=== PATIENT | male | born 1985 | race Caucasian/White ===

== ENCOUNTER 2020-09-28 02:16 | Emergency (ER) | payer SELFPAY ==
[~2020-09-28 02:16] MED LIST: CLIN300C12 PO; METH4TAB PO
[2020-09-28 02:57] VITALS: BP 150/95
--- NOTE | 2020-09-28 03:13 | ED Lower Extremity ---
General Stated Complaint: RT FOOT SWOLLEN Source: patient Exam Limitations: no limitations History of Present Illness Date Seen by Provider: September 28, 2020 Time Seen by Provider: 02:45 Initial Comments Patient presents ER by private conveyance with chief complaint 2 days progressively worsening right foot swelling and pain. He was not able to get sleep tonight. He has not taken anything for because he does not have anything for it except for his gabapentin. He has not seen Dr. Briceño his primary care doctor. He does see Dr. Duarte urologist for hydrocele. He is not having any chest pain shortness of air fever chills nausea vomiting diarrhea. No history of diabetes. Allergies and Home Medications Allergies Coded Allergies: Sulfa (Sulfonamide Antibiotics) (Verified Allergy, Unknown, 02/19/15) Home Medications Clindamycin HCl 300 Mg Capsule, 300 MG PO QID Prescribed by: CATHY AMAYA on 02/19/152030 Methylprednisolone 4 Mg Tab.ds.pk, 4 MG PO UD Prescribed by: CATHY AMAYA on 02/19/152030 Methylprednisolone 4 Mg Tab.ds.pk, 4 MG PO UD PER DOSE PACK INSTRUCTIONS Prescribed by: MYNOR HUTTON on 09/28/20320 Naproxen 500 Mg Tablet, 500 MG PO BID Prescribed by: MYNOR HUTTON on 09/28/20320 Patient Home Medication List Home Medication List Reviewed: Yes Review of Systems Constitutional: No chills, No diaphoresis EENTM: No hearing loss, No blurred vision Respiratory: No cough, No short of breath Cardiovascular: No chest pain, No palpitations Gastrointestinal: No abdominal pain, No nausea Genitourinary: No discharge, No dysuria Musculoskeletal: see HPI; No back pain; joint pain All Other Systems Reviewed Negative Unless Noted: Yes Past Xhzlmxu-Qjaxta-Hujult Hx Patient Social History Alcohol Use: Occasionally Uses Drug of Choice: Cannabis Smoking Status: Current Everyday Smoker Type Used: Cigarettes (2 packs/day) Past Medical History Abdominal, Orthopedic Hypertension Reproductive Disorders: No Sexually Transmitted Disease: No Family Medical History Cardiovascular disease Physical Exam Vital Signs Capillary Refill : Height, Weight, BMI Height: 6'4" Weight: 284lbs. oz. 128.515973xl; BMI Method:Stated General Appearance: WD/WN, mild distress HEENT: PERRL/EOMI, pharynx normal Cardiovascular: normal peripheral pulses, regular rate, rhythm Respiratory: no respiratory distress, no accessory muscle use Ankles: bilateral ankle non-tender, bilateral ankle normal inspection, bilateral ankle normal range of motion, bilateral ankle no evidence of injury Feet: left foot non-tender, left foot normal inspection; bilateral foot normal range of motion; left foot no evidence of injury; right foot pain, right foot soft tissue tenderness, right foot swelling (Slight) Neurologic/Tendon: normal sensation, normal motor functions, normal tendon functions, responds to pain Neurologic/Psychiatric: alert, oriented x 3 Skin: normal color, warm/dry Progress/Results/Core Measures Results/Orders My Orders Orders - MYNOR HUTTON Ketorolac Injection (Toradol Injection) (09/28/20 03:15) Foot, Right, 3 View (09/28/20 03:05) Medications Given in ED Current Medications Medications Dose Ordered Sig/Rubens Route Start Time Stop Time Status Last Admin Dose Admin Ketorolac Tromethamine 60 mg ONCE ONCE IM 09/28/20 03:15 09/28/20 03:16 DC 09/28/20 03:10 60 MG Progress Progress Note : Time: 03:12 Progress Note Nontraumatic right foot pain with some small amount of swelling. No evidence of DVT on clinical exam. No chest pain shortness of air. Little bit of erythema about his right foot. Cellulitis versus gout? Follow-up in [address] Cunningham. Return precautions discussed. Toradol for pain. Naproxen prescription. Diagnostic Imaging Diagonstic Imaging: Xray Plain Films/CT/US/NM/MRI: other (Right foot) Comments No acute osseous abnormality. Reviewed: Reviewed by Me Departure Impression Primary Impression: Acute right ankle pain Additional Impression: Gout Qualified Codes: M10.9 - Gout, unspecified Disposition: HOME, SELF-CARE Condition: Stable Departure-Patient Inst. Decision time for Depature: 03:19 Referrals: [facility] (PCP/Family) Primary Care Physician Patient Instructions: Lifestyle Changes to Manage Gout, Gout (DC) Add. Discharge Instructions: I suspect you might have gout in your right ankle. Take the steroids as directed. Naproxen 500 mg twice a day for the next 1 to 2 weeks. Expect improvement over the next week. Follow-up with Dr. Lopez if your symptoms have not resolved. Scripts Methylprednisolone (Methylprednisolone Dose Pack) 4 Mg Tab.ds.pk 4 MG PO UD for 6 Days, #21 PKG 0 Refills PER DOSE PACK INSTRUCTIONS Prov: MYNOR HUTTON 09/28/20 Naproxen (Naprosyn) 500 Mg Tablet 500 MG PO BID for 14 Days, #30 TAB 0 Refills Prov: MYNOR HUTTON 09/28/20 Work/School Note: Work Release Form Date Seen in the Emergency Department: September 28, 2020 Return to Work: September 30, 2020 Restrictions: No Restrictions MYNOR HUTTON September 28, 2020 03:13
[2020-09-28] MEDS ORDERED: KETOROLAC 60 MG/2 ML VIAL IM ONE (03:15)
[2020-09-28] MEDS ORDERED: NAPR-1071 PO ×2 (03:21→03:32)
[2020-09-28] MEDS ORDERED: METH4TAB10 PO ×2 (03:21→03:32)
--- NOTE | 2020-09-28 08:09 | Diagnostic Imaging Report ---
EXAMINATION: Right foot radiographs, 3 views. COMPARISON: None. HISTORY: 35-year-old male, right foot pain. FINDINGS: There is no identified acute fracture. There is no radiopaque foreign body. The joint spaces are well preserved. There is no identified focal soft tissue swelling. IMPRESSION: Unremarkable radiographs of the right foot. Dictated by: Dictated on workstation # [id number]
== END 2020-09-28 03:46 | disposition home or self-care (01) ==
LOC: EDUNIT# 02:16 → ER 02:20
DX: M10.9 Gout, unspecified (principal); I10 Essential (primary) hypertension; F17.210 Nicotine dependence, cigarettes, uncomplicated
CPT/HCPCS: 73630

== ENCOUNTER 2021-01-14 15:52 | Emergency (ER) | payer SELFPAY ==
[~2021-01-14] VITALS: Ht 195 cm; Wt 136.0 kg
[~2021-01-14 15:52] MED LIST changes: +METH4TAB10 PO; +NAPR-1071 PO
--- NOTE | 2021-01-14 16:11 | ED Upper Extremity ---
General Chief Complaint: Upper Extremity Stated Complaint: R HAND FINGER INJURY Source: patient Exam Limitations: no limitations History of Present Illness Date Seen by Provider: Jan 14, 2021 Time Seen by Provider: 16:10 Initial Comments To ER with right ring finger laceration at the tip from a knife just prior to arrival. Last tetanus was in 2013. He came to ER because he could not get the bleeding to stop. Onset: just prior to arrival Severity: moderate Pain/Injury Location: right 4th finger Modifying Factors: Worse With Movement Allergies and Home Medications Allergies Coded Allergies: Sulfa (Sulfonamide Antibiotics) (Verified Allergy, Unknown, 02/19/15) Patient Home Medication List Home Medication List Reviewed: Yes Clindamycin HCl (Clindamycin HCl) 300 Mg Capsule, 300 MG PO QID Prescribed by: CATHY AMAYA on 02/19/152030 Methylprednisolone (Medrol) 4 Mg Tab.ds.pk, 4 MG PO UD Prescribed by: CATHY AMAYA on 02/19/152030 Methylprednisolone (Methylprednisolone Dose Pack) 4 Mg Tab.ds.pk, 4 MG PO UD Prescribed by: MYNOR HUTTON on 09/28/20331 Naproxen (Naprosyn) 500 Mg Tablet, 500 MG PO BID Prescribed by: MYNOR HUTTON on 09/28/20331 Review of Systems Constitutional: see HPI EENTM: see HPI Respiratory: no symptoms reported Cardiovascular: no symptoms reported Genitourinary: no symptoms reported Musculoskeletal: no symptoms reported Skin: see HPI Psychiatric/Neurological: No Symptoms Reported Past Vycnjko-Xuhwxw-Xeukor Hx Patient Social History Tobacco Use?: Yes Tobacco type used: Cigarettes Smoking Status: Current Everyday Smoker Smokeless Tobacco Frequency: Light User Use of E-Cig and/or Vaping dev: No Substance use?: Yes Substance type: Marijuana Substance frequency: Daily Alcohol Use?: Yes Alcohol type: Beer Alcohol Frequency: Rarely Pt feels they are or have been: No Past Medical History Surgery/Hospitalization HX: Hernia repair and Right Knee repair twice. Surgeries: Yes (RIGHT KNEE, HERNIA REPAIR) Abdominal, Orthopedic Respiratory: No Cardiac: Yes Hypertension Neurological: No Reproductive Disorders: No Sexually Transmitted Disease: No Genitourinary: Yes (SWOLLEN TESTICLES) Gastrointestinal: No Musculoskeletal: No Endocrine: No Cancer: No Psychosocial: No Integumentary: No Blood Disorders: No Family Medical History Cardiovascular disease Physical Exam Vital Signs Vital Signs - First Documented 01/14/21 15:57 Temp 36.7 Pulse 95 Resp 18 B/P (MAP) 141/97 Pulse Ox 96 O2 Delivery Room Air Capillary Refill : Height, Weight, BMI Height: 6'4" Weight: 284lbs. oz. 128.288738uz; BMI Method:Stated General Appearance: WD/WN, no apparent distress Respiratory: no respiratory distress, no accessory muscle use Gastrointestinal: normal bowel sounds Shoulder: normal inspection, non-tender Elbow/Forearm: normal inspection, non-tender Hand: Right, laceration (superficial skin avulsion of a small area to the tip of the ring finger.) Neurologic/Psychiatric: alert, normal mood/affect, oriented x 3 Skin: normal color, warm/dry Progress/Results/Core Measures Results/Orders My Orders Orders - MARU ALANIZ APRN Dipht,Pertamanda(Acell),Tet Adult (Boostrix (01/14/21 16:15) Vital Signs/I&O 01/14/21 01/14/21 15:57 15:57 Temp 36.7 36.7 Pulse 95 95 Resp 18 B/P (MAP) 141/97 141/97 (112) Pulse Ox 96 96 O2 Delivery Room Air Room Air Departure Communication (Admissions) 1624-area was scrubbed with chlorhexidine/saline solution which caused it to rebleed. That was stopped and skin glue was applied. Impression Primary Impression: Skin avulsion Disposition: 01 HOME, SELF-CARE Condition: Stable Departure-Patient Inst. Decision time for Depature: 16:11 Referrals: [facility] (PCP/Family) Primary Care Physician Patient Instructions: Wound Care Add. Discharge Instructions: All discharge instructions reviewed with patient and/or family. Voiced under standing. MARU ALANIZ APRN Jan 14, 2021 16:11
[2021-01-14] MEDS ORDERED: TETANUS,DIPTH,PERTUSS P/F (BOOSTRIX) 0.5 ML VIAL IM ONE (16:15)
[2021-01-14 16:24] VITALS: BP 141/97
== END 2021-01-14 16:24 | disposition home or self-care (01) ==
LOC: EDUNIT# 15:52 → ER 15:55
DX: S61.204A Unspecified open wound of right ring finger without damage to nail, initial encounter (principal); I10 Essential (primary) hypertension; F17.210 Nicotine dependence, cigarettes, uncomplicated; Z23 Encounter for immunization; Z79.52 Long term (current) use of systemic steroids; W26.0XXA Contact with knife, initial encounter
CPT/HCPCS: 90715

== ENCOUNTER 2021-04-30 23:15 | Emergency (ER) | payer SELFPAY ==
[~2021-04-30] VITALS: Ht 195 cm; Wt 134.0 kg
[2021-04-30 23:15] VITALS: BP 127/93
[~2021-04-30 23:15] MED LIST changes: +CLIN-144 PO; -CLIN300C12 PO
[2021-04-30] MEDS ORDERED: LACTATED RINGERS 1,000 ML IV ONE (23:30)
--- NOTE | 2021-04-30 23:30 | ED Psychosocial ---
General Stated Complaint: OD Source: patient, EMS Exam Limitations: no limitations History of Present Illness Date Seen by Provider: Apr 30, 2021 Time Seen by Provider: 23:15 Initial Comments Patient to the ER by EMS after he called EMS because she started feeling drowsy. He says he has been working on a pint of vodka since he got a call while he was at work from his girlfriend breaking up with him. He says he is little more than group home through the pint and took 1 handful 20 to 30 capsules of gabapentin 300 mg each. He feels a little drowsy. He says he does not want to commit suicide and has no history of suicide attempts. He just wanted to sleep. He became concerned however and says he wants to lives with his who called ambulance. He has been alert and oriented x4 and cooperative for EMS. He was walking. He has had no nausea or vomiting. No fevers chills cough shortness of breath diarrhea. He has history of high blood pressure but does not routinely take any medicines despite his primary care providers concerns. Allergies and Home Medications Allergies Coded Allergies: Sulfa (Sulfonamide Antibiotics) (Verified Allergy, Unknown, 02/19/15) Patient Home Medication List Home Medication List Reviewed: Yes Clindamycin HCl (Clindamycin HCl) 300 Mg Capsule, 300 MG PO QID Prescribed by: CATHY AMAYA on 02/19/152030 Methylprednisolone (Medrol) 4 Mg Tab.ds.pk, 4 MG PO UD Prescribed by: CATHY AMAYA on 02/19/152030 Methylprednisolone (Methylprednisolone Dose Pack) 4 Mg Tab.ds.pk, 4 MG PO UD Prescribed by: MYNOR HUTTON on 09/28/20331 Naproxen (Naprosyn) 500 Mg Tablet, 500 MG PO BID Prescribed by: MYNOR HUTTON on 09/28/20331 Review of Systems Constitutional: No chills, No diaphoresis EENTM: No ear discharge, No hearing loss Respiratory: No cough, No short of breath Cardiovascular: No chest pain, No edema Gastrointestinal: No abdominal pain, No constipation, No diarrhea Genitourinary: No discharge, No dysuria Musculoskeletal: No back pain, No joint pain All Other Systems Reviewed Negative Unless Noted: Yes Past Bjlgoge-Tkxags-Svedfe Hx Patient Social History Tobacco Use?: Yes Tobacco type used: Cigarettes Smoking Status: Current Everyday Smoker Use of E-Cig and/or Vaping dev: No Substance use?: Yes Substance type: Marijuana Alcohol Use?: Yes Past Medical History Surgery/Hospitalization HX: Hernia repair and Right Knee repair twice. Surgeries: Yes (RIGHT KNEE, HERNIA REPAIR) Abdominal, Orthopedic Respiratory: No Cardiac: Yes Hypertension Neurological: No Reproductive Disorders: No Sexually Transmitted Disease: No Genitourinary: Yes (SWOLLEN TESTICLES) Gastrointestinal: No Musculoskeletal: No Endocrine: No Cancer: No Psychosocial: No Integumentary: No Blood Disorders: No Family Medical History Cardiovascular disease Physical Exam Vital Signs - First Documented 04/30/21 23:15 Temp 37.0 Pulse 91 Resp 16 B/P (MAP) 127/93 (104) Pulse Ox 96 O2 Delivery Room Air Capillary Refill : Height, Weight, BMI Height: 6'4" Weight: 284lbs. oz. 128.958756gh; 35.00 BMI Method:Stated General Appearance: WD/WN, no apparent distress HEENT: PERRL/EOMI, normal ENT inspection, pharynx normal Neck: full range of motion, supple, normal inspection Respiratory: lungs clear, normal breath sounds, no respiratory distress, no accessory muscle use Cardiovascular: normal peripheral pulses, regular rate, rhythm Peripheral Pulses: 2+ Radial Pulses (R), 2+ Radial Pulses (L) Gastrointestinal: normal bowel sounds, non tender, soft Extremities: normal range of motion, non-tender, normal capillary refill Neurologic/Psychiatric: alert, normal mood/affect, oriented x 3 Appearance/Memory: appropriate appearance Behavior/Eye Contact: cooperative, good eye contact, normal speech Thoughts/Hallucinations: normal thought pattern, no apparent hallucination, other (Denies suicidal ideation or homicidal ideation.) Progress/Results/Core Measures Results/Orders Lab Results Laboratory Tests Test 04/30/21 23:33 Range/Units White Blood Count 11.4 H 4.3-11.0 10^3/uL Red Blood Count 5.22 4.30-5.52 10^6/uL Hemoglobin 16.5 13.3-17.7 g/dL Hematocrit 48 40-54 % Mean Corpuscular Volume 92 80-99 fL Mean Corpuscular Hemoglobin 32 25-34 pg Mean Corpuscular Hemoglobin Concent 34 32-36 g/dL Red Cell Distribution Width 11.7 10.0-14.5 % Platelet Count 220 130-400 10^3/uL Mean Platelet Volume 10.8 9.0-12.2 fL Immature Granulocyte % (Auto) 0 % Neutrophils (%) (Auto) 73 42-75 % Lymphocytes (%) (Auto) 17 12-44 % Monocytes (%) (Auto) 9 0-12 % Eosinophils (%) (Auto) 0 0-10 % Basophils (%) (Auto) 0 0-10 % Neutrophils # (Auto) 8.4 H 1.8-7.8 10^3/uL Lymphocytes # (Auto) 2.0 1.0-4.0 10^3/uL Monocytes # (Auto) 1.1 H 0.0-1.0 10^3/uL Eosinophils # (Auto) 0.0 0.0-0.3 10^3/uL Basophils # (Auto) 0.0 0.0-0.1 10^3/uL Immature Granulocyte # (Auto) 0.0 0.0-0.1 10^3/uL Sodium Level 143 135-145 MMOL/L Potassium Level 3.3 L 3.6-5.0 MMOL/L Chloride Level 109 H 98-107 MMOL/L Carbon Dioxide Level 20 L 21-32 MMOL/L Anion Gap 14 5-14 MMOL/L Blood Urea Nitrogen 12 7-18 MG/DL Creatinine 0.89 0.60-1.30 MG/DL Estimat Glomerular Filtration Rate 97 BUN/Creatinine Ratio 13 Glucose Level 104 70-105 MG/DL Calcium Level 8.8 8.5-10.1 MG/DL Corrected Calcium 8.8 8.5-10.1 MG/DL Total Bilirubin 0.6 0.1-1.0 MG/DL Aspartate Amino Transf (AST/SGOT) 29 5-34 U/L Alanine Aminotransferase (ALT/SGPT) 46 0-55 U/L Alkaline Phosphatase 54 40-136 U/L Total Protein 6.7 6.4-8.2 GM/DL Albumin 4.0 3.2-4.5 GM/DL Salicylates Level < 5.0 L 5.0-20.0 MG/DL Acetaminophen Level < 10 L 10-30 UG/ML Serum Alcohol 133 H <10 MG/DL My Orders Orders - MYNOR HUTTON Ed Iv/Invasive Line Start (04/30/21 23:22) Lactated Ringers (Lr 1000 Ml Iv Solution (04/30/21 23:30) Ua Culture If Indicated (04/30/21:) Cbc With Automated Diff (04/30/21) Comprehensive Metabolic Panel (04/30/21) Alcohol (04/30/21:) Drug Screen Stat (Urine) (04/30/21:) Acetaminophen (04/30/21:) Salicylate (04/30/21) Ekg Tracing (04/30/21) Ed Iv/Invasive Line Start (04/30/21) Monitor-Rhythm Ecg Trace Only (04/30/21) Bh Status Checks/Observation Q15M (04/30/21) Ed Iv/Invasive Line Start (04/30/21) End Tidal Co2 (04/30/21:) Vital Signs/I&O 04/30/21 23:15 Temp 37.0 Pulse 91 Resp 16 B/P (MAP) 127/93 (104) Pulse Ox 96 O2 Delivery Room Air 05/01/21 00:00 Intake Total 100 ml Balance 100 ml Progress Progress Note #1: Time: 23:38 Progress Note As the patient is was getting some blood drawn he decided he did not want to stay any longer. He says he had to go home and get to his dog and he had to make it to work in the morning. We explained to him that after speaking to poison control he only needed a 6-hour observation at which time he could take a nap here and then go home and check on his dog and go to work in the morning. Patient said this was not acceptable and wants to go AMA. We explained to him risks, benefits and alternatives. We explained him that we would have to contact law enforcement to let him know that he was impaired. At no time was the patient made any suicidal comments. We had a lengthy conversation and he still elected to go AMA. His IVs were discontinued and he was allowed to leave. Nursing staff to notify law enforcement Progress Note #2: Time: 00:35 Progress Note Please search to the campus as well as the streets looking for him and around the successful in locating him. He called back Stating he was at home and asked if he was going to . We explained to him that it is unlikely he took enough gabapentin or alcohol to significantly harm himself however he is welcome to come back to the ER to be monitored. He states he was not going to come back to the ER. He states he was going to snort some Seven dust and had a pistol sitting on the couch beside him. He states that he was very sad about his recent girlfriend leaving him and might shoot himself. He says he would definitely shoot anyone who tried to come through the door. He then hung up and police were called again and they responded to his home. Departure Impression Primary Impression: Acute alcoholic intoxication Qualified Codes: F10.920 - Alcohol use, unspecified with intoxication, uncomplicated Additional Impression: Gabapentin overdose Qualified Codes: T42.6X4A - Poisoning by other antiepileptic and sedative- hypnotic drugs, undetermined, initial encounter Disposition: 01 HOME, SELF-CARE Condition: Stable Departure-Patient Inst. Decision time for Depature: 23:39 Referrals: [facility] (PCP/Family) Primary Care Physician Patient Instructions: Alcohol Use Disorder (DC) Add. Discharge Instructions: Please follow-up with your primary care doctor or [facility] by calling [phone] if you are needing extra help. Return to the ER for worsening symptoms. MYNOR HUTTON Apr 30, 2021 23:29
[2021-04-30 23:38] LABS: BASOPHILS % (AUTO) 0 % (0-10); EOSINOPHILS % (AUTO) 0 % (0-10); HEMATOCRIT 48 % (40-54); HEMOGLOBIN 16.5 g/dL (13.3-17.7); LYMPHOCYTES % (AUTO) 17 % (12-44); MEAN CORPUSCULAR HEMOGLOBIN 32 pg (25-34); MEAN CORPUSCULAR HGB CONC 34 g/dL (32-36); MEAN CORPUSCULAR VOLUME 92 fL (80-99); MEAN PLATELET VOLUME 10.8 fL (9.0-12.2); MONOCYTES # (AUTO) 1.1 10^3/uL (0.0-1.0); MONOCYTES % (AUTO) 9 % (0-12); NEUTROPHILS # (AUTO) 8.4 10^3/uL (1.8-7.8); NEUTROPHILS % (AUTO) 73 % (42-75); PLATELET COUNT 220 10^3/uL (130-400); WHITE BLOOD COUNT 11.4 10^3/uL (4.3-11.0)
[2021-04-30 23:48] LABS: CHLORIDE 109 MMOL/L (98-107); POTASSIUM 3.3 MMOL/L (3.6-5.0)
[2021-04-30 23:49] LABS: SODIUM 143 MMOL/L (135-145)
[2021-04-30 23:50] LABS: CALCIUM 8.8 MG/DL (8.5-10.1)
[2021-04-30 23:51] LABS: GLUCOSE 104 MG/DL (70-105)
[2021-04-30 23:52] LABS: CARBON DIOXIDE 20 MMOL/L (21-32); TOTAL PROTEIN 6.7 GM/DL (6.4-8.2)
[2021-04-30 23:53] LABS: BILIRUBIN,TOTAL 0.6 MG/DL (0.1-1.0)
[2021-04-30 23:55] LABS: ALKALINE PHOSPHATASE 54 U/L (40-136); CREATININE SERUM 0.89 MG/DL (0.60-1.30); GFR ESTIMATED 97
[2021-04-30 23:56] LABS: BUN/CREATININE RATIO 13
[2021-04-30 23:58] LABS: ALANINE AMINOTRANSFERASE 46 U/L (0-55); SALICYLATE < 5.0 MG/DL (5.0-20.0)
[2021-05-01 00:03] LABS: ACETAMINOPHEN < 10 UG/ML (10-30)
== END 2021-04-30 23:35 | disposition left against medical advice (07) ==
LOC: EDUNIT# 23:19 → ER 23:21
DX: F10.129 Alcohol abuse with intoxication, unspecified (principal); T42.6X4A Poisoning by other antiepileptic and sedative-hypnotic drugs, undetermined, initial encounter; I10 Essential (primary) hypertension; F17.210 Nicotine dependence, cigarettes, uncomplicated
CPT/HCPCS: 80053; 85025; 93041; 99283; G0480 ×3; 36415; 80320; 80329

== ENCOUNTER 2021-05-11 23:29 | Emergency (ER) | payer SELFPAY ==
[~2021-05-11] VITALS: Ht 195.6 cm; Wt 125.0 kg
[2021-05-11] MEDS ORDERED: LISI5TAB20 PO (23:41)
--- NOTE | 2021-05-11 23:58 | ED Psychosocial ---
General Chief Complaint: Psych/Social Disorder Stated Complaint: CP;ABD PAIN Nursing Triage Note: brought in by [facility] for c/o anxiety for several months progressively getting worse since 05/05/21 Source: patient History of Present Illness Date Seen by Provider: May 11, 2021 Time Seen by Provider: 23:45 Initial Comments PT ARRIVES VIA EMS FROM HOME C/O ANXIETY ONGOING FOR SEVERAL MONTHS, BUT MUCH WORSE SINCE HIS GIRLFRIEND LEFT HIM ON 05/01/[address] DUARTE, HIS PCP, THIS PAST WEEK, WELL [facility] THIS PAST WEEK FOR THIS PROBLEM STATES HE ALSO HAS AN APPOINTMENT IN THE MORNING WITH [facility] AND [facility] FOR HIS ALCOHOL ABUSE, WELL MARIJUANA USE STATES HE HAS NOT HAD ANY ALCOHOL RECENTLY--STATES HE NORMALLY DRINKS VERY HEAVY EVERY DAY--AT LEAST A PINT OF HARD LIQUOR DAILY PT SMOKES MARIJUANA ON REGULAR BASIS, BUT STATES "NO HARD DRUGS FOR YEARS"--USED TO SMOKE AND SNORT METH. DENIES IV USE HAS HISTORY OF PSYCH PROBLEMS, BUT HAS NOT BEEN ON MEDICATIONS FOR AT LEAST 10 YEARS STATES [place]EN [place] [employer] [place], BUT OVER 10 YEARS AGO DENIES ANY SUICIDAL OR HOMICIAL THOUGHTS OR ATTEMPTS TO ME HOWEVER, PT WAS SEEN HERE 04/30/21 FOR ALCOHOL INTOXICATION AND INTENTIONALLY OVERDOSING ON GABAPENTIN-HE DENIED SUICIDAL IDEATIONS, ONLY STATING THAT HE "WANTED TO GO TO SLEEP". HE HAD REPORTED AT THAT TIME, THAT HIS GIRLFRIEND LEFT HIM THE DAY PRIOR HE LEFT A, THEN WAS LATER CONTACTED AND HE MADE SUICIDAL AND HOMICIAL THREATS ON THE PHONE, AND POLICE WERE CONTACTED AND THEY RESPONDED TO THE HOME,BUT PT WAS NOT BROUGHT BACK TO ER. 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 DUARTE [facility] Allergies and Home Medications Allergies Coded Allergies: Sulfa (Sulfonamide Antibiotics) (Verified Allergy, Unknown, 02/19/15) Patient Home Medication List Home Medication List Reviewed: Yes Lisinopril (Lisinopril) 5 Mg Tablet, Unknown Dose PO DAILY, (Reported) Entered as Reported by: ROE ESPINOSA on 05/11/21 9806 Last Action: New Order Discontinued Medications Clindamycin HCl (Clindamycin HCl) 300 Mg Capsule, 300 MG PO QID Discontinued Reason: No Longer Taking Prescribed by: CATHY AMAYA on 02/19/152030 Last Action: Discontinued Methylprednisolone (Medrol) 4 Mg Tab.ds.pk, 4 MG PO UD Discontinued Reason: No Longer Taking Prescribed by: CATHY AMAYA on 02/19/152030 Last Action: Discontinued Methylprednisolone (Methylprednisolone Dose Pack) 4 Mg Tab.ds.pk, 4 MG PO UD Discontinued Reason: No Longer Taking Prescribed by: MYNOR HUTTON on 09/28/20331 Last Action: Discontinued Naproxen (Naprosyn) 500 Mg Tablet, 500 MG PO BID Discontinued Reason: No Longer Taking Prescribed by: MYNOR HUTTON on 09/28/20331 Last Action: Discontinued Review of Systems Constitutional: no symptoms reported Respiratory: no symptoms reported Cardiovascular: other (HAS HAD CHEST TIGHTNESS WHEN HE GETS VERY ANXIOUS, BUT NO SYMPTOMS NOW. ) Gastrointestinal: no symptoms reported Genitourinary: no symptoms reported Musculoskeletal: no symptoms reported Skin: no symptoms reported Psychiatric/Neurological: See HPI, Anxiety Past Txdabdg-Vmlmpe-Qffsvi Hx Patient Social History Tobacco Use?: Yes Tobacco type used: Cigarettes Smoking Status: Current Everyday Smoker Substance use?: Yes Substance type: Methamphetamine, Marijuana Additional substance use comme: HX OF METH USE Substance frequency: Daily Alcohol Use?: Yes Alcohol type: Hard Liquor Alcohol Frequency: Daily Pt feels they are or have been: No Past Medical History Surgery/Hospitalization HX: Hernia repair and Right Knee repair twice, htn, bipolar, schizophrenia, depression/anxiety. Surgeries: Yes (RIGHT KNEE, HERNIA REPAIR) Abdominal, Orthopedic Respiratory: No Cardiac: Yes Hypertension Neurological: No Reproductive Disorders: No Sexually Transmitted Disease: No Genitourinary: Yes (SWOLLEN TESTICLES) Gastrointestinal: No Musculoskeletal: No Endocrine: No HEENT: No Cancer: No Psychosocial: Yes (OSAWATOMIE X 2; OVERDOSES) Sleep Difficulties, Anxiety, Suicide Attempts, Personality Disorder, Schizophrenia, Depression Integumentary: No Blood Disorders: No Family Medical History Cardiovascular disease Physical Exam Vital Signs - First Documented 05/11/21 23:33 Temp 36.8 Pulse 95 Resp 18 B/P (MAP) 131/97 (108) Pulse Ox 97 O2 Delivery Room Air Capillary Refill : Less Than 3 Seconds Height, Weight, BMI Height: 6'4" Weight: 284lbs. oz. 128.734038pi; 32.00 BMI Method:Stated General Appearance: WD/WN, no apparent distress, other (COVERED IN ANIMAL HAIR) Respiratory: chest non-tender, normal breath sounds, no respiratory distress, no accessory muscle use Cardiovascular: regular rate, rhythm, no murmur Gastrointestinal: soft Neurologic/Psychiatric: no motor/sensory deficits, alert, oriented x 3, other (PT IS CALM AT THIS TIME) Appearance/Memory: appropriate insight, no memory impairment Behavior/Eye Contact: cooperative, good eye contact, normal speech Thoughts/Hallucinations: normal thought pattern, no apparent hallucination Skin: normal color, warm/dry, tattoos/piercings Progress/Results/Core Measures Results/Orders My Orders Orders - CATHY AMAYA DO Rx-Hydroxyzine Pamoate (Rx-Vistaril) (05/11/21 23:56) Vital Signs/I&O 05/11/21 05/12/21 23:33 00:03 Temp 36.8 Pulse 95 81 Resp 18 18 B/P (MAP) 131/97 (108) 131/82 Pulse Ox 97 95 O2 Delivery Room Air Room Air Blood Pressure Mean: 108 Progress Progress Note : Progress Note PT ADVISED TO KEEP APPOINTMENT TOMORROW WITH SUBSTANCE ABUSE TREATMENT CLINIC AND FOLLOW UP WITH DR. DUARTE AND MENTAL HEALTH THIS WEEK WELL Departure Impression Primary Impression: Anxiety Disposition: 01 HOME, SELF-CARE Condition: Stable Departure-Patient Inst. Decision time for Depature: 23:57 Referrals: [facility] (PCP/Family) Primary Care Physician Patient Instructions: Anxiety, Adult (DC) Add. Discharge Instructions: HOME, REST KEEP YOUR APPOINTMENT WITH MENTAL HEALTH/SUBSTANCE ABUSE TREATMENT PROGRAM TOMORROW SCHEDULED FOLLOW UP WITH DR. DUARTE THIS WEEK FOR FURTHER CARE WELL All discharge instructions reviewed with patient and/or family. Voiced understanding. CATHY AMAYA DO May 11, 2021 23:58
[2021-05-12 00:03] VITALS: BP 131/82
== END 2021-05-12 00:06 | disposition home or self-care (01) ==
LOC: EDUNIT# 23:29 → ER 23:30
DX: F41.9 Anxiety disorder, unspecified (principal); I10 Essential (primary) hypertension; F17.210 Nicotine dependence, cigarettes, uncomplicated; Z79.899 Other long term (current) drug therapy
CPT/HCPCS: 99285

== ENCOUNTER 2021-08-29 19:43 | Emergency (ER) | payer SELFPAY ==
[~2021-08-29] VITALS: Ht 193 cm; Wt 128.3 kg
[~2021-08-29 19:43] MED LIST changes: +LISI5TAB20 PO
[2021-08-29 19:48] VITALS: BP 152/90
[2021-08-29] MEDS ORDERED: ORPHENADRINE 60 MG/2 ML (NORFLEX) AMP (ED ONLY) IM ONE (20:00)
[2021-08-29] MEDS ORDERED: HYDROcodone/APAP 5 MG/325 MG (LORTAB) TAB PO ONE (20:00)
[2021-08-29] MEDS ORDERED: predniSONE 20 MG TAB PO ONE (20:00)
[2021-08-29] MEDS ORDERED: KETOROLAC 60 MG/2 ML VIAL IM ONE (20:00)
--- NOTE | 2021-08-29 20:06 | ED Back Pain ---
General Chief Complaint: Back Problems Stated Complaint: BACK PAIN Nursing Triage Note: PT TO ROOM BY WHEELCHAIR. PT STATES HE BEGAN HAVING BACK PAIN TWO DAYS AGO. HE THINKS HE PROBABLY LIFTED SOMETHING HEAVY, BUT STATES HE DOES NOT RECALL AN INJURY Source of Information: Patient Exam Limitations: No Limitations (MARU ALANIZ APRN) History of Present Illness Date Seen by Provider: Aug 29, 2021 Time Seen by Provider: 20:03 Initial Comments to ER by private vehicle from home with reports of low midline back pain that radiates around both hips laterally. He has had some urinary frequency since last night no fever no chills no nausea no vomiting. He states that he does have long-term back pain but this seems worse. He does have an anti- inflammatory and a muscle relaxer that he takes at bedtime. He has not yet had that this evening. He just got off work at [email or web address]. He states he does heavy lifting at work and does some lifting at home. He does not recall any particular injury. He denies fevers or chills. Denies any personal history of cancer. Denies any numbness of his genitals. Denies any IV drug use. Location: Lumbar Spine, Paraspinous Muscles Timing/Duration: Gone Now Severity: Moderate Pain/Injury Location: Back Associated Symptoms: lower back pain (MARU ALANIZ APRN) Allergies and Home Medications Allergies Coded Allergies: Sulfa (Sulfonamide Antibiotics) (Verified Allergy, Unknown, 02/19/15) Patient Home Medication List Home Medication List Reviewed: Yes (MARU ALANIZ APRN) Cefuroxime Axetil (Cefuroxime) 500 Mg Tablet, 500 MG PO BID Prescribed by: MARU ALANIZ on 08/29/212028 Hydrocodone/Acetaminophen (Hydrocodone-Acetamin 5-325 mg) 5 Mg-325 Mg Tablet, 1 TAB PO Q4H PRN for PAIN-MODERATE (5-7) Prescribed by: MARU ALANIZ on 08/29/212032 Lisinopril (Lisinopril) 5 Mg Tablet, Unknown Dose PO DAILY, (Reported) Entered as Reported by: ROE ESPINOSA on 05/11/21 2341 Review of Systems Constitutional: see HPI EENTM: see HPI Respiratory: no symptoms reported Cardiovascular: no symptoms reported Genitourinary: no symptoms reported Musculoskeletal: see HPI, back pain Skin: no symptoms reported Psychiatric/Neurological: No Symptoms Reported (MARU ALANIZ APRN) Past Xjztwst-Idwnwu-Ydkfsh Hx Past Medical History Surgery/Hospitalization HX: Hernia repair and Right Knee repair twice, htn, bipolar, schizophrenia, depression/anxiety. Surgeries: Yes (RIGHT KNEE, HERNIA REPAIR) Abdominal, Orthopedic Respiratory: No Cardiac: Yes Hypertension Neurological: No Reproductive Disorders: No Sexually Transmitted Disease: No Genitourinary: Yes (SWOLLEN TESTICLES) Gastrointestinal: No Musculoskeletal: No Endocrine: No HEENT: No Cancer: No Psychosocial: Yes (OSAWATOMIE X 2; OVERDOSES) Sleep Difficulties, Anxiety, Suicide Attempts, Personality Disorder, Schizophrenia, Depression Integumentary: No Blood Disorders: No (MARU ALANIZ APRN) Family Medical History Cardiovascular disease Physical Exam Vital Signs Vital Signs - First Documented 08/29/21 08/29/21 19:48 21:14 Temp 36.8 Pulse 75 Resp 20 B/P (MAP) 152/90 (110) Pulse Ox 96 O2 Delivery Room Air (CATHY AMAAY DO) Vital Signs Capillary Refill : (MARU ALANIZ APRN) Height, Weight, BMI Height: 6'4" Weight: 284lbs. oz. 128.766396nt; 34.00 BMI Method:Stated General Appearance: No Apparent Distress, WD/WN Respiratory: No Accessory Muscle Use, No Respiratory Distress Extremity: Normal Capillary Refill, Normal Inspection, Other (Normal dorsiflexion of the feet and plantar flexion with strength 5 out of 5. On arrival he required assistance to get out of the car in a wheelchair. He then required assistance getting into bed. Shortly thereafter he was able to stand up provide urine sample. He is able to stand up with assistance, then stood on his own, then sat down on his own and lifted his own legs into bed.) Neurologic/Psychiatric: Alert, Oriented x3 Skin: Normal Color, Warm/Dry (MARU ALANIZ APRN) Progress/Results/Core Measures Results/Orders Lab Results Laboratory Tests Test 08/29/21 20:00 08/29/21 20:42 Range/Units Urine Color YELLOW Urine Clarity CLEAR Urine pH 5.5 5-9 Urine Specific [place] >=1.030 1.016-1.022 Urine Protein NEGATIVE NEGATIVE Urine Glucose (UA) NEGATIVE NEGATIVE Urine Ketones NEGATIVE NEGATIVE Urine Nitrite NEGATIVE NEGATIVE Urine Bilirubin NEGATIVE NEGATIVE Urine Urobilinogen 0.2 < = 1.0 MG/DL Urine Leukocyte Esterase NEGATIVE NEGATIVE Urine RBC (Auto) NEGATIVE NEGATIVE Urine RBC RARE /HPF Urine WBC 0-2 /HPF Urine Squamous Epithelial Cells NONE /HPF Urine Crystals NONE /LPF Urine Bacteria MODERATE H /HPF Urine Casts NONE /LPF Urine Mucus NEGATIVE /LPF Urine Culture Indicated YES White Blood Count 6.9 4.3-11.0 10^3/uL Red Blood Count 5.15 4.30-5.52 10^6/uL Hemoglobin 16.4 13.3-17.7 g/dL Hematocrit 48 40-54 % Mean Corpuscular Volume 92 80-99 fL Mean Corpuscular Hemoglobin 32 25-34 pg Mean Corpuscular Hemoglobin Concent 35 32-36 g/dL Red Cell Distribution Width 11.9 10.0-14.5 % Platelet Count 247 130-400 10^3/uL Mean Platelet Volume 10.5 9.0-12.2 fL Immature Granulocyte % (Auto) 0 % Neutrophils (%) (Auto) 55 42-75 % Lymphocytes (%) (Auto) 32 12-44 % Monocytes (%) (Auto) 11 0-12 % Eosinophils (%) (Auto) 2 0-10 % Basophils (%) (Auto) 1 0-10 % Neutrophils # (Auto) 3.8 1.8-7.8 10^3/uL Lymphocytes # (Auto) 2.2 1.0-4.0 10^3/uL Monocytes # (Auto) 0.8 0.0-1.0 10^3/uL Eosinophils # (Auto) 0.1 0.0-0.3 10^3/uL Basophils # (Auto) 0.0 0.0-0.1 10^3/uL Immature Granulocyte # (Auto) 0.0 0.0-0.1 10^3/uL Sodium Level 139 135-145 MMOL/L Potassium Level 4.1 3.6-5.0 MMOL/L Chloride Level 107 98-107 MMOL/L Carbon Dioxide Level 20 L 21-32 MMOL/L Anion Gap 12 5-14 MMOL/L Blood Urea Nitrogen 13 7-18 MG/DL Creatinine 0.90 0.60-1.30 MG/DL Estimat Glomerular Filtration Rate 114 BUN/Creatinine Ratio 14 Glucose Level 92 70-105 MG/DL Calcium Level 8.8 8.5-10.1 MG/DL Corrected Calcium 9.0 8.5-10.1 MG/DL Total Bilirubin 1.1 H 0.1-1.0 MG/DL Aspartate Amino Transf (AST/SGOT) 23 5-34 U/L Alanine Aminotransferase (ALT/SGPT) 39 0-55 U/L Alkaline Phosphatase 52 40-136 U/L C-Reactive Protein High Sensitivity 0.02 0.00-0.50 MG/DL Total Protein 6.1 L 6.4-8.2 GM/DL Albumin 3.8 3.2-4.5 GM/DL (JOSE LUISCATHY Tenorio ) Medications Given in ED Current Medications Medications Dose Ordered Sig/Rubens Route Start Time Stop Time Status Last Admin Dose Admin Acetaminophen/ Hydrocodone Bitart 1 ea ONCE ONCE PO 08/29/21 20:00 08/29/21 20:01 DC 08/29/21 20:06 1 EA Ketorolac Tromethamine 60 mg ONCE ONCE IM 08/29/21 20:00 08/29/21 20:01 DC 08/29/21 20:07 60 MG Orphenadrine Citrate 60 mg ONCE ONCE IM 08/29/21 20:00 08/29/21 20:01 DC 08/29/21 20:06 60 MG Prednisone 40 mg ONCE ONCE PO 08/29/21 20:00 08/29/21 20:01 DC 08/29/21 20:06 40 MG (JOSE LUIS,CATHY Tenorio ) Vital Signs/I&O 08/29/21 08/29/21 19:48 21:14 Temp 36.8 Pulse 75 76 Resp 20 20 B/P (MAP) 152/90 (110) Pulse Ox 96 97 O2 Delivery Room Air (CATHY AMAYA ) Blood Pressure Mean: 110 Departure Communication (Admissions) 2025-is urine shows no nitrites no leukocyte esterase and no white cells though he does have a large number of bacteria in his urine and his symptoms of bilateral anterior hip pain and urinary frequency since last night are consistent with UTI. I will treat empirically for UTI until culture results are back. 2040-patient states he now has a spasm in his back that seems worse than before. I offered to start an IV and check some labs and give him something stronger for pain. He replies "I feel like you guys are always having to start an IV on somebody". I informed him this is the ER and if someone is sick and have to be here they probably need an IV. He asked what I would give him through the IV and I told him I would use something like fentanyl. He replies "oh no, fentanyl is bad". He then wishes to proceed with IV placement and something different for pain because its not controlled right now. Discussed with him my plan to put him on an antibiotic for the bacteria in his urine. He informs me that the bacteria in his urine is coming from his testicle because he has an infection at the doctor wants to do surgery for but he will not let them. He does not have a ny testicular pain or genital pain. (MARU ALANIZ APRN) Impression Primary Impression: Acute low back pain Disposition: 01 HOME, SELF-CARE Condition: Stable Departure-Patient Inst. Decision time for Depature: 20:06 (MARU ALANIZ APRN) Referrals: [facility] (PCP/Family) Primary Care Physician Patient Instructions: Low Back Pain ED Add. Discharge Instructions: 1. Take antibiotics until the urine culture is back. Continue the current pain medication regimen at home. Follow-up with your doctor next week. If pain persists then the next step would be having your family doctor order an MRI. All discharge instructions reviewed with patient and/or family. Voiced understanding. Scripts Hydrocodone/Acetaminophen (Hydrocodone-Acetamin 5-325 mg) 5 Mg-325 Mg Tablet 1 TAB PO Q4H PRN for PAIN-MODERATE (5-7), #5 TAB Prov: MARU ALANIZ APRN 08/29/21 Cefuroxime Axetil (Cefuroxime) 500 Mg Tablet 500 MG PO BID, #14 TAB Prov: MARU ALANIZ APRN 08/29/21 Work/School Note: Work Release Form Date Seen in the Emergency Department: Aug 29, 2021 Return to Work: Aug 31, 2021 ATTENDING PHYSICIAN NOTE: I WAS PHYSICALLY PRESENT ER PHYSICIAN, BUT I WAS NOT INVOLVED IN ANY DECISION MAKING OR ANY CARE OF THIS PATIENT. (CATHY AMAYA DO) MARU ALANIZ APRN Aug 29, 2021 20:06 CATHY AMAYA DO Aug 29, 2021 21:32
[2021-08-29 20:08] LABS: BILIRUBIN,URINE NEGATIVE (NEGATIVE); CLARITY,URINE CLEAR; COLOR,URINE YELLOW; GLUCOSE, URINE (UA) NEGATIVE (NEGATIVE); KETONES,URINE NEGATIVE (NEGATIVE); LEUKOCYTE ESTERASE ,URINE NEGATIVE (NEGATIVE); NITRITE,URINE NEGATIVE (NEGATIVE); PH,URINE 5.5 (5-9); PROTEIN,URINE NEGATIVE (NEGATIVE)
[2021-08-29 20:23] LABS: BACTERIA,URINE MODERATE /HPF; RBC,URINE RARE /HPF; WBC,URINE 0-2 /HPF
[2021-08-29] MEDS ORDERED: CEFU500T63 PO (20:29)
[2021-08-29] MEDS ORDERED: ACHD5005 PO (20:30)
[2021-08-29] MEDS ORDERED: morphine INJ 10 MG/ML 1ML (SYR OR VIAL) IVP STA (20:37)
[2021-08-29 21:02] LABS: ALBUMIN 3.8 GM/DL (3.2-4.5); POTASSIUM 4.1 MMOL/L (3.6-5.0)
[2021-08-29 21:03] LABS: BASOPHILS % (AUTO) 1 % (0-10); EOSINOPHILS # (AUTO) 0.1 10^3/uL (0.0-0.3); EOSINOPHILS % (AUTO) 2 % (0-10); HEMATOCRIT 48 % (40-54); HEMOGLOBIN 16.4 g/dL (13.3-17.7); LYMPHOCYTES # (AUTO) 2.2 10^3/uL (1.0-4.0); LYMPHOCYTES % (AUTO) 32 % (12-44); MEAN CORPUSCULAR HEMOGLOBIN 32 pg (25-34); MEAN CORPUSCULAR HGB CONC 35 g/dL (32-36); MEAN CORPUSCULAR VOLUME 92 fL (80-99); MEAN PLATELET VOLUME 10.5 fL (9.0-12.2); MONOCYTES # (AUTO) 0.8 10^3/uL (0.0-1.0); MONOCYTES % (AUTO) 11 % (0-12); NEUTROPHILS # (AUTO) 3.8 10^3/uL (1.8-7.8); NEUTROPHILS % (AUTO) 55 % (42-75); PLATELET COUNT 247 10^3/uL (130-400); WHITE BLOOD COUNT 6.9 10^3/uL (4.3-11.0)
[2021-08-29 21:04] LABS: CALCIUM 8.8 MG/DL (8.5-10.1)
[2021-08-29 21:05] LABS: TOTAL PROTEIN 6.1 GM/DL (6.4-8.2)
[2021-08-29 21:07] LABS: BILIRUBIN,TOTAL 1.1 MG/DL (0.1-1.0)
[2021-08-29 21:09] LABS: CREATININE SERUM 0.9 MG/DL (0.60-1.30)
[2021-08-29 21:52] LABS: ERYTHROCYTE SEDIMENTATION RATE 3 MM/HR (0-15)
== END 2021-08-29 21:17 | disposition home or self-care (01) ==
LOC: EDUNIT# 19:43 → ER 19:46
DX: M54.50 Low back pain, unspecified (principal); X50.0XXA Overexertion from strenuous movement or load, initial encounter
CPT/HCPCS: 36415; 80053; 81000; 85025; 85652; 86141; 87088; 87491; 87591

== ENCOUNTER 2021-09-11 15:26 | Emergency (ER) | payer SELFPAY ==
[~2021-09-11] VITALS: Ht 193 cm; Wt 122.0 kg
[~2021-09-11 15:26] MED LIST changes: -CYCL10TA25 PO; -GABA300C PO; -TRAM-42 PO
[2021-09-11] MEDS ORDERED: KETOROLAC 30 MG/ML VIAL IVP ONE (15:45)
[2021-09-11] MEDS ORDERED: ORPHENADRINE 60 MG/2 ML (NORFLEX) AMP (ED ONLY) IM ONE (15:45)
--- NOTE | 2021-09-11 15:48 | ED Back Pain ---
General Chief Complaint: Back Problems Stated Complaint: BACK PAIN Nursing Triage Note: PT STATES HX OF BACK PAIN, JUST CAME FROM MRI, NEEDS TO BE AT WORK AT 1700 AND WOULD LIKE SOMETHING TO HELP HIM FEEL BETTER. FREQUENT DARK URINATION, STATES BLADDER PAIN, BLACK STOOLS Source of Information: Patient Exam Limitations: No Limitations History of Present Illness Date Seen by Provider: September 11, 2021 Time Seen by Provider: 15:47 Initial Comments Patient is a 35-year-old male who presents to the ED for back pain. Patient states he has been having this intermittent back pain over the past 2 weeks. He was seen here on the and states he had lab work and urinalysis which was unremarkable. Patient had a outpatient MRI performed today and came to the ED. He states he has been having this sharp shooting pain to his hip bilateral and lower abdomen. Pain described as sharp intermittent worse with movement. Sharp shooting pain down the right leg. Denies of any bowel or urine incontinence or saddle paresthesia. Does report some possible dark urine and dark tarry stools. This occurred a few days ago lasting for a few days but no symptoms today. Patient states he was given pain medication here with some improvement of pain. Denies of any IV drug use, night sweats, fever. Pain does radiate up into the shoulder blades bilateral. Denies chest pain, shortness of breath, cough, headache, dizziness. Patient refusing any lab work, continue imaging such as CT abdomen pelvis and urinalysis. Patient also requesting work note. Patient denies of any specific injury. 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 Allergies and Home Medications Allergies Coded Allergies: Sulfa (Sulfonamide Antibiotics) (Verified Allergy, Unknown, 02/19/15) Patient Home Medication List Home Medication List Reviewed: Yes Cefuroxime Axetil (Cefuroxime) 500 Mg Tablet, 500 MG PO BID Prescribed by: MARU ALANIZ on 08/29/212028 Cyclobenzaprine HCl (Cyclobenzaprine HCl) 10 Mg Tablet, 10 MG PO TID Prescribed by: ABRAHAM KINCAID on 09/11/21 155 Hydrocodone/Acetaminophen (Hydrocodone-Acetamin 5-325 mg) 5 Mg-325 Mg Tablet, 1 TAB PO Q4H PRN for PAIN-MODERATE (5-7) Prescribed by: MARU ALANIZ on 08/29/212032 Hydrocodone/Acetaminophen (Hydrocodone-Acetamin 5-325 mg) 5 Mg-325 Mg Tablet, 1 TAB PO Q4H PRN for PAIN-MODERATE (5-7) Prescribed by: ABRAHAM KINCAID on 09/11/21 155 Lisinopril (Lisinopril) 5 Mg Tablet, Unknown Dose PO DAILY, (Reported) Entered as Reported by: ROE ESPINOSA on 05/11/21 234 Methylprednisolone (Methylprednisolone Dose Pack) 4 Mg Tab.ds.pk, 4 MG PO UD Prescribed by: ABRAHAM KINCAID on 09/11/21 1555 Review of Systems Constitutional: No chills, No diaphoresis, No malaise, No weakness EENTM: No hearing loss, No blurred vision, No double vision Respiratory: No cough, No dyspnea on exertion Cardiovascular: No chest pain Gastrointestinal: abdominal pain; No nausea, No vomiting; other (Dark tarry stool) Genitourinary: No decreased output, No discharge, No frequency; hematuria Musculoskeletal: back pain; No gout; joint pain Skin: No change in color, No change in hair/nails All Other Systems Reviewed Negative Unless Noted: Yes Past Ozfatqt-Rzrtrc-Amiliw Hx Patient Social History Tobacco Use?: Yes Tobacco type used: Cigarettes Smoking Status: Current Everyday Smoker Substance use?: Yes Substance type: Marijuana Alcohol Use?: Yes Alcohol type: Beer Alcohol Frequency: Once in a while Immunizations Up To Date First/Initial COVID19 Vaccinat: 05/19/2021 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 Surgeries: Yes (RIGHT KNEE, HERNIA REPAIR) Abdominal, Orthopedic Respiratory: No Cardiac: Yes Hypertension Neurological: No Reproductive Disorders: No Sexually Transmitted Disease: No Genitourinary: Yes (SWOLLEN TESTICLES) Gastrointestinal: No Musculoskeletal: No Endocrine: No HEENT: No Cancer: No Psychosocial: Yes (OSAWATOMIE X 2; OVERDOSES) Sleep Difficulties, Anxiety, Suicide Attempts, Personality Disorder, Schizophrenia, Depression Integumentary: No Blood Disorders: No Family Medical History Cardiovascular disease Physical Exam Vital Signs Vital Signs - First Documented 09/11/21 15:33 Temp 36.7 Pulse 77 Resp 18 B/P (MAP) 147/97 (114) Pulse Ox 97 O2 Delivery Room Air Capillary Refill : Less Than 3 Seconds Height, Weight, BMI Height: 6'4" Weight: 284lbs. oz. 128.359203hu; 32.00 BMI Method:Stated General Appearance: No Apparent Distress, WD/WN HEENT: PERRL/EOMI, TMs Normal, Normal ENT Inspection, Pharynx Normal Neck: Full Range of Motion, Normal Inspection, Non Tender, Supple Cardiovascular: Regular Rate, Rhythm, No Edema, No Gallop, No JVD, No Murmur Respiratory: Chest Non Tender, Lungs Clear, Normal Breath Sounds, No Accessory Muscle Use Gastrointestinal: Normal Bowel Sounds, No Organomegaly, No Pulsatile Mass, Non Tender, Soft Back: CVA Tenderness (L), CVA Tenderness (R), Vertebral Tenderness (Lumbar midline tenderness. Bilateral lumbar paraspinal muscle tenderness) Extremity: Normal Capillary Refill, Normal Inspection, Normal Range of Motion Neurologic/Psychiatric: Alert, Oriented x3, No Motor/Sensory Deficits Skin: Normal Color, Warm/Dry Progress/Results/Core Measures Results/Orders My Orders Orders - KHANH MARTINEZ Ketorolac Injection (Toradol Injection) (09/11/21 15:45) Orphenadrine Inj (Ed Only) (Norflex Inje (09/11/21 15:45) Hydrocodone/Apap 10/325 Tablet (Lortab 1 (09/11/21 15:42) Ketorolac Injection (Toradol Injection) (09/11/21 16:00) Medications Given in ED Current Medications Medications Dose Ordered Sig/Rubens Route Start Time Stop Time Status Last Admin Dose Admin Ketorolac Tromethamine 30 mg ONCE ONCE IVP 09/11/21 15:45 09/11/21 15:49 DC 09/11/21 15:54 30 MG Orphenadrine Citrate 60 mg ONCE ONCE IM 09/11/21 15:45 09/11/21 15:46 DC 09/11/21 15:54 60 MG Vital Signs/I&O 09/11/21 09/11/21 09/11/21 09/11/21 15:33 15:53 15:54 15:59 Temp 36.7 36.7 36.7 36.7 Pulse 77 Resp 18 B/P (MAP) 147/97 (114) Pulse Ox 97 O2 Delivery Room Air 5/5/22 16:24 Temp 36.7 Pulse 77 Resp 18 B/P (MAP) 147/97 Pulse Ox 97 O2 Delivery Room Air Blood Pressure Mean: 114 Departure Communication (PCP) Patient refused any lab work, Hemoccult test, urinalysis. He states he wants to take 1 day at a time. If the MRI is unremarkable he will do further work-up. Patient denies of any bloody stool today. Dark tarry stool 2 days prior. Denies excessive NSAID use. Intermittent drinks alcohol. No upper abdominal pain chest pain. This pain has been continuous in his lower back worse with movement, standing with radiation bilateral hip into his lower abdomen. Denies having any bowel or urine incontinence or saddle paresthesia. Pain appears to radiate in the abdomen versus the groin or around the testicles. Denies any testicle pain. No lower extremity weakness or sensory changes. Sharp shooting pain down the right leg. This is likely more lumbar radiculopathy pain coming from his lower back. This would not explain his dark tarry stool and urinary symptoms. Once again I did recommend lab work and further evaluation for the symptoms patient refused and will follow-up with [facility]. Patient was given dose of pain medication. Patient was requesting a work note. 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 No specific injury that he notes. Patient with a steady gait here in the ED. Impression Primary Impression: Back pain Disposition: 01 HOME, SELF-CARE Condition: Stable Departure-Patient Inst. Decision time for Depature: 15:53 Referrals: [facility] (PCP/Family) Primary Care Physician Patient Instructions: Low Back Pain (DC) Scripts Hydrocodone/Acetaminophen (Hydrocodone-Acetamin 5-325 mg) 5 Mg-325 Mg Tablet 1 TAB PO Q4H PRN for PAIN-MODERATE (5-7), #6 TAB Prov: KHANH MARTINEZ 09/11/21 Methylprednisolone (Methylprednisolone Dose Pack) 4 Mg Tab.ds.pk 4 MG PO UD for 6 Days, #21 PKG PER DOSE PACK INSTRUCTIONS Prov: KHANH MARTINEZ 09/11/21 Cyclobenzaprine HCl (Cyclobenzaprine HCl) 10 Mg Tablet 10 MG PO TID, #14 TAB Prov: KHANH MARTINEZ 09/11/21 Work/School Note: Work Release Form Date Seen in the Emergency Department: September 11, 2021 Return to Work: September 14, 2021 KHANH MARTINEZ September 11, 2021 15:48
[2021-09-11] MEDS ORDERED: CYCL10TA25 PO (15:55)
[2021-09-11] MEDS ORDERED: METH4TAB10 PO (15:55)
[2021-09-11] MEDS ORDERED: ACHD5005 PO (15:55)
[2021-09-11] MEDS ORDERED: KETOROLAC 30 MG/ML VIAL IM ONE (16:00)
[2021-09-11 16:24] VITALS: BP 147/97
== END 2021-09-11 16:24 | disposition home or self-care (01) ==
LOC: EDUNIT# 15:26 → ER 15:29
DX: M54.50 Low back pain, unspecified (principal); F17.210 Nicotine dependence, cigarettes, uncomplicated
CPT/HCPCS: 99284

== ENCOUNTER → 2021-09-11 | Outpatient (CLI) | payer SELFPAY ==
[~2021-09-11] MED LIST changes: +ACHD5005 PO; +CEFU500T63 PO; +CYCL10TA25 PO; +GABA300C PO; +TRAM-42 PO
--- NOTE | 2021-09-11 17:42 | Diagnostic Imaging Report ---
PROCEDURE: MRI lumbar spine. TECHNIQUE: Multiplanar, multisequence MRI of the lumbar spine was performed without contrast. INDICATION: Low back pain. Lumbar radiculopathy into right lower extremity. COMPARISON: None. FINDINGS: There are five lumbar-type vertebral bodies for the purposes of this report. Normal alignment. Vertebral body heights are preserved. No abnormal signal in the conus which terminates at L1. Normal morphology of the cauda equina. The visualized pelvis and paravertebral soft tissues are unremarkable. L1-L2: Normal. L2-L3: Small central disc protrusion. There is only mild spinal canal and right lateral recess narrowing. No neural foraminal narrowing. L3-L4: Annular disc bulging and facet hypertrophy result in mild spinal canal and bilateral lateral recess narrowing. No neural foraminal narrowing. L4-L5: Right paracentral disc protrusion results in moderate spinal canal and bilateral lateral recess narrowing. Moderate bilateral neural foraminal narrowing. L5-S1: Small central disc protrusion results in mild left lateral recess narrowing. Moderate left and mild right neural foraminal narrowing. No spinal canal narrowing. IMPRESSION: 1. Multiple small disc protrusions. The most significant is at L4-L5 where it results in moderate spinal canal and bilateral lateral recess narrowing. 2. Scattered mild and moderate neural foraminal narrowing, detailed above. 3. No acute osseous findings. Dictated by: Dictated on workstation # [id number]
== END ==
LOC: RAD 14:29
PROVIDERS: ATTEND Internal Medicine
DX: M51.16 Intervertebral disc disorders with radiculopathy, lumbar region (principal); M48.061 Spinal stenosis, lumbar region without neurogenic claudication
CPT/HCPCS: 72148

== ENCOUNTER 2021-09-14 20:55 | Emergency (ER) | payer SELFPAY ==
[~2021-09-14] VITALS: Ht 195.5 cm; Wt 126.3 kg
[~2021-09-14 20:55] MED LIST changes: +CYCL10TA25 PO
[2021-09-14 21:06] VITALS: BP 113/79
[2021-09-14 21:35] LABS: BILIRUBIN,URINE NEGATIVE (NEGATIVE); CLARITY,URINE CLEAR; COLOR,URINE YELLOW; GLUCOSE, URINE (UA) NEGATIVE (NEGATIVE); KETONES,URINE NEGATIVE (NEGATIVE); LEUKOCYTE ESTERASE ,URINE NEGATIVE (NEGATIVE); NITRITE,URINE NEGATIVE (NEGATIVE); PROTEIN,URINE NEGATIVE (NEGATIVE)
--- NOTE | 2021-09-14 21:37 | ED Back Pain ---
General Chief Complaint: Back Problems Stated Complaint: BACK PAIN Nursing Triage Note: PT ARRIVAL TO ER VIA EMS WITH COMPLAINT OF BACK PAIN. PT STATES THAT HE HAD MRI WEDNESDAY AND DIAGNOSED WITH HERNIATED L4-L5. PT STATES THAT HE TOOK HIS TRAMADOL, AND HYDRO 5 TODAY WITHOUT RELIEF. PT STATES THAT HIS PCP DR. ALVARO BABCOCK DO PAIN MANAGEMENT BECAUSE HE SMOKES POT. PT STATES THAT HE IS HERE FOR BETTER PAIN MEDICINE. PAIN AT A /10. Source of Information: Patient Exam Limitations: No Limitations History of Present Illness Date Seen by Provider: September 14, 2021 Time Seen by Provider: 21:05 Initial Comments This 35-year-old gentleman presents to the emergency room with complaints of worsening lower back pain with radicular symptoms in the right hip and thigh that sometimes radiates down to his heel. He has noticed significant worsening in the last 3 weeks. He had a recent MRI demonstrating disc bulge and neuroforaminal narrowing at multiple lumbar levels. He also reports some lower abdominal pain with some bladder discomfort with urination. He describes a post void dribbling and is unsure if he is completely emptying his bladder. He was prescribed antibiotics for possible urinary tract infection but urine culture had no growth. He completed those antibiotics. He reports no significant improvement in his pain with use of hydrocodone, prednisone Dosepak, cyclobenzaprine, or ibuprofen. He reports he can nod to get stronger pain management from Dr. Duarte at [facility] because of his use of THC products. He uses marijuana and CBD Gummies. He is independently ambulatory without significant gait disturbance. Allergies and Home Medications Allergies Coded Allergies: Sulfa (Sulfonamide Antibiotics) (Verified Allergy, Unknown, 02/19/15) Patient Home Medication List Home Medication List Reviewed: Yes Cefuroxime Axetil (Cefuroxime) 500 Mg Tablet, 500 MG PO BID Prescribed by: MARU ALANIZ on 08/29/212028 Cyclobenzaprine HCl (Cyclobenzaprine HCl) 10 Mg Tablet, 10 MG PO TID Prescribed by: ABRAHAM KINCAID on 09/11/21 155 Gabapentin (Neurontin) 300 Mg Capsule, 300 MG PO TID Prescribed by: TEN ESCAMILLA on 09/14/212205 Hydrocodone/Acetaminophen (Hydrocodone-Acetamin 5-325 mg) 5 Mg-325 Mg Tablet, 1 TAB PO Q4H PRN for PAIN-MODERATE (5-7) Prescribed by: MARU ALANIZ on 08/29/212032 Hydrocodone/Acetaminophen (Hydrocodone-Acetamin 5-325 mg) 5 Mg-325 Mg Tablet, 1 TAB PO Q4H PRN for PAIN-MODERATE (5-7) Prescribed by: ABRAHAM KINCAID on 09/11/21 155 Lisinopril (Lisinopril) 5 Mg Tablet, Unknown Dose PO DAILY, (Reported) Entered as Reported by: ROE ESPINOSA on 05/11/21 234 Methylprednisolone (Methylprednisolone Dose Pack) 4 Mg Tab.ds.pk, 4 MG PO UD Prescribed by: ABRAHAM KINCAID on 09/11/21 155 Tramadol HCl (Ultram) 50 Mg Tablet, 50 MG PO Q6H PRN for PAIN-BREAKTHROUGH Prescribed by: TEN ESCAMILLA on 09/14/212206 Review of Systems Constitutional: no symptoms reported EENTM: no symptoms reported Respiratory: no symptoms reported Cardiovascular: no symptoms reported Gastrointestinal: see HPI Genitourinary: see HPI Musculoskeletal: see HPI Skin: no symptoms reported Psychiatric/Neurological: See HPI Past Rkywvdw-Fuitpt-Wiaugg Hx Patient Social History Tobacco Use?: Yes Tobacco type used: Cigarettes Smoking Status: Current Everyday Smoker Substance use?: Yes Substance type: Marijuana Substance frequency: Daily Alcohol Use?: No Pt feels they are or have been: No Immunizations Up To Date Influenza Vaccine Up-to-Date: No; Not Current First/Initial COVID19 Vaccinat: 05/19/2021 Second COVID19 Vaccination Madan: 05/19/2021 Third COVID19 Vaccination Date: 05/19/2021 Past Medical History Surgery/Hospitalization HX: Hernia repair and Right Knee repair twice, htn, bipolar, schizophrenia, depression/anxiety. Surgeries: Yes (RIGHT KNEE, HERNIA REPAIR, multiple trauma related surgeries, abscess RLE) Abdominal, Orthopedic Respiratory: No Cardiac: Yes Hypertension Neurological: No Reproductive Disorders: No Sexually Transmitted Disease: No Genitourinary: Yes (SWOLLEN TESTICLES) Gastrointestinal: No Musculoskeletal: Yes (Lumbar disc disease) Chronic Back Pain Endocrine: No HEENT: No Cancer: No Psychosocial: Yes (OSAWATOMIE X 2; OVERDOSES) Sleep Difficulties, Anxiety, Suicide Attempts, Personality Disorder, Schizophrenia, Depression Integumentary: No Blood Disorders: No Family Medical History Cardiovascular disease Physical Exam Vital Signs Vital Signs - First Documented 09/14/21 21:06 Temp 36.3 Pulse 66 Resp 18 B/P (MAP) 113/79 (90) Pulse Ox 99 O2 Delivery Room Air Capillary Refill : Less Than 3 Seconds Height, Weight, BMI Height: 6'4" Weight: 284lbs. oz. 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, 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 as Tested Skin: Normal Color, Warm/Dry Progress/Results/Core Measures Results/Orders Lab Results Laboratory Tests Test 09/14/21 21:30 Range/Units Urine Color YELLOW Urine Clarity CLEAR Urine pH 6.0 5-9 Urine Specific [place] 1.020 1.016-1.022 Urine Protein NEGATIVE NEGATIVE Urine Glucose (UA) NEGATIVE NEGATIVE Urine Ketones NEGATIVE NEGATIVE Urine Nitrite NEGATIVE NEGATIVE Urine Bilirubin NEGATIVE NEGATIVE Urine Urobilinogen 0.2 < = 1.0 MG/DL Urine Leukocyte Esterase NEGATIVE NEGATIVE Urine RBC (Auto) NEGATIVE NEGATIVE Urine RBC NONE /HPF Urine WBC NONE /HPF Urine Squamous Epithelial Cells NONE /HPF Urine Renal Epithelial Cells NONE /HPF Urine Crystals NONE /LPF Urine Bacteria TRACE /HPF Urine Casts NONE /LPF Urine Mucus NEGATIVE /LPF Urine Culture Indicated NO My Orders Orders - TEN SILVA MD Bladder Scan (09/14/21 21:17) Ua Culture If Indicated (09/14/21 21:17) Tramadol Tablet (Ultram Tablet) (09/14/21 22:00) Gabapentin Capsule/Tablet (Neurontin Cap (09/14/21 22:00) Medications Given in ED Current Medications Medications Dose Ordered Sig/Rubens Route Start Time Stop Time Status Last Admin Dose Admin Gabapentin 300 mg ONCE ONCE PO 09/14/21 22:00 09/14/21 22:01 DC 09/14/21 22:23 300 MG Tramadol HCl 50 mg ONCE ONCE PO 09/14/21 22:00 09/14/21 22:01 DC 09/14/21 22:23 50 MG Vital Signs/I&O 09/14/21 21:06 Temp 36.3 Pulse 66 Resp 18 B/P (MAP) 113/79 (90) Pulse Ox 99 O2 Delivery Room Air 09/15/21 00:00 Output Total 7 ml Balance -7 ml Blood Pressure Mean: 90 Progress Progress Note #1: Time: 21:39 Progress Note Post void bladder scan demonstrated no significant residual volume. Progress Note #2: Progress Note Urinalysis was unremarkable. I discussed options for pain management with the patient. Unfortunately, the majority of treatments I would suggest have already been attempted, and patient states they were not at all effective. 2 medications that were not observed in review of his prior treatments were gabapentin and tramadol. These were offered to the patient. He states he actually has a prescription of gabapentin at home but he is uncertain of the quantity or dose. He has not tried it because he overdosed on it previously when he was suicidal. He clearly denies any suicidal ideation at this time. He was encouraged to try gabapentin again since his symptoms sound radicular in nature. He was also offered tramadol. He was not content with this proposed treatment plan but did not have a better alternative other than a fentanyl injection. I informed him that a fentanyl injection would be very short acting and would not provide him any lasting relief for his chronic pain. Departure Impression Primary Impression: Lumbar disc disease Additional Impressions: Low back pain Qualified Codes: M54.41 - Lumbago with sciatica, right side; G89.29 - Other chronic pain Lower abdominal pain Disposition: 01 HOME, SELF-CARE Condition: Stable Departure-Patient Inst. Decision time for Depature: 22:03 Referrals: [facility] (PCP/Family) Primary Care Physician Patient Instructions: Low Back Pain in Adults Add. Discharge Instructions: You may try ibuprofen up to 600 mg every 6 hours as needed and/or Tylenol (acetaminophen) up to 1000 mg every 6 hours as needed for primary pain control. You may also add a lidocaine patches purchased [id number]. If these [id number] treatments are not sufficient, try gabapentin and tramadol as prescribed. It is not appropriate or possible to obtain consistent chronic pain management from the emergency room. You are encouraged to work with your primary care provider for chronic pain management and to obtain appropriate referrals to relations specialist or other services. Complete relief of your pain may not be a realistic expectation given the results of your MRI. Return to the ER if you have worsening symptoms that include true weakness of your legs, numbness of the groin, or problems controlling bowel or bladder beyond your baseline. Return to the ER if you have other urgent issues or concerns. All discharge instructions reviewed with patient and/or family. Voiced understanding. Scripts Tramadol HCl (Ultram) 50 Mg Tablet 50 MG PO Q6H PRN for PAIN-BREAKTHROUGH, #10 TAB Prov: TEN SILVA MD 09/14/21 Gabapentin (Neurontin) 300 Mg Capsule 300 MG PO TID, #10 CAP Prov: TEN SILVA MD 09/14/21 Copy Copies To 1: SONAL DUARTE MD, JOSHUA T MD September 14, 2021 21:37
[2021-09-14 21:42] LABS: BACTERIA,URINE TRACE /HPF
[2021-09-14] MEDS ORDERED: GABAPENTIN 300 MG (NEURONTIN) CAP PO ONE (22:00)
[2021-09-14] MEDS ORDERED: GABA300C PO (22:06)
[2021-09-14] MEDS ORDERED: TRAM-42 PO (22:06)
== END 2021-09-14 22:28 | disposition home or self-care (01) ==
LOC: EDUNIT# 20:55 → ER 20:57
DX: M54.41 Lumbago with sciatica, right side (principal); F17.210 Nicotine dependence, cigarettes, uncomplicated
CPT/HCPCS: 81000; 99283

== ENCOUNTER 2021-11-11 04:53 | Emergency (ER) | payer SELFPAY ==
[~2021-11-11] VITALS: Ht 195.5 cm; Wt 91.0 kg
[~2021-11-11 04:53] MED LIST changes: +GABA300C PO; +TRAM-42 PO
[2021-11-11] MEDS ORDERED: CEPHALEXIN 250 MG (KEFLEX) CAP PO ONE (05:09)
[2021-11-11] MEDS ORDERED: TETANUS,DIPTH,PERTUSS P/F (BOOSTRIX) 0.5 ML VIAL IM ONE (05:10)
--- NOTE | 2021-11-11 05:25 | ED Integumentary General ---
General Stated Complaint: SPIDER BITE, RT ANKLE Source: patient History of Present Illness Date Seen by Provider: Nov 11, 2021 Time Seen by Provider: 04:55 Initial Comments PT ARRIVES VIA EMS FROM HOME C/O SORES TO BOTH LOWER LEGS STATES A WEEK AGO HE WAS MOWING HIS YARD WITH A PUSH MOWER AND THINKS HE MIGHT HAVE BEEN BITTEN BY SOMETHING--DID NOT SEE OR FEEL ANYTHING BITE/STING HIM STATES HE HAS BEEN CUTTING THEM OPEN WITH A KNIFE AND TRYING TO DRAIN THE AREAS HIMSELF STATES HE SAW DR. DUARTE LAST WEDNESDAY FOR THIS PROBLEM AND NO RX'S OR TREATMENT GIVEN. LAST TETANUS VACCINE 08/2012. PT IS NOT DIABETIC. PCP; [facility] [place], DR. DUARTE Allergies and Home Medications Allergies Coded Allergies: Sulfa (Sulfonamide Antibiotics) (Verified Allergy, Unknown, 02/19/15) Patient Home Medication List Home Medication List Reviewed: Yes Cefuroxime Axetil (Cefuroxime) 500 Mg Tablet, 500 MG PO BID Prescribed by: MARU ALANIZ on 08/29/212028 Cephalexin (Cephalexin) 500 Mg Tablet, 500 MG PO QID Prescribed by: CATHY AMAYA on 11/11/21 0529 Cyclobenzaprine HCl (Cyclobenzaprine HCl) 10 Mg Tablet, 10 MG PO TID Prescribed by: ABRAHAM KINCAID on 09/11/21 155 Gabapentin (Neurontin) 300 Mg Capsule, 300 MG PO TID Prescribed by: TEN ESCAMILLA on 09/14/212205 Hydrocodone/Acetaminophen (Hydrocodone-Acetamin 5-325 mg) 5 Mg-325 Mg Tablet, 1 TAB PO Q4H PRN for PAIN-MODERATE (5-7) Prescribed by: MARU ALANIZ on 08/29/212032 Hydrocodone/Acetaminophen (Hydrocodone-Acetamin 5-325 mg) 5 Mg-325 Mg Tablet, 1 TAB PO Q4H PRN for PAIN-MODERATE (5-7) Prescribed by: ABRAHAM KINCAID on 09/11/21 155 Lisinopril (Lisinopril) 5 Mg Tablet, Unknown Dose PO DAILY, (Reported) Entered as Reported by: ROE ESPINOSA on 05/11/211 Methylprednisolone (Methylprednisolone Dose Pack) 4 Mg Tab.ds.pk, 4 MG PO UD Prescribed by: ABRAHAM KINCAID on 09/11/21 1555 Mupirocin (Mupirocin) 2 % Oint...g., 22 GM TP BID Prescribed by: CATHY AMAYA on 11/11/21 0568 Tramadol HCl (Ultram) 50 Mg Tablet, 50 MG PO Q6H PRN for PAIN-BREAKTHROUGH Prescribed by: TEN ESCAMILLA on 09/14/212206 Review of Systems Review of Systems Constitutional: no symptoms reported Musculoskeletal: see HPI Skin: see HPI Past Nekzunl-Alpjdk-Otvhje Hx Immunizations Up To Date First/Initial COVID19 Vaccinat: 05/19/2021 Second COVID19 Vaccination Madan: 05/19/2021 Third COVID19 Vaccination Date: 05/19/2021 Past Medical History Surgery/Hospitalization HX: Hernia repair and Right Knee repair twice, htn, bipolar, schizophrenia, depression/anxiety. Surgeries: Yes (RIGHT KNEE, HERNIA REPAIR, multiple trauma related surgeries, abscess RLE) Abdominal, Orthopedic Respiratory: No Cardiac: Yes Hypertension Neurological: No Reproductive Disorders: No Sexually Transmitted Disease: No Genitourinary: Yes (SWOLLEN TESTICLES) Gastrointestinal: No Musculoskeletal: Yes (Lumbar disc disease) Degenerate Disk Disease, Chronic Back Pain, Fractures Endocrine: No HEENT: No Cancer: No Psychosocial: Yes (OSAWATOMIE X 2; OVERDOSES;POLYSUBSTANCE ABUSE) Sleep Difficulties, Anxiety, Suicide Attempts, Personality Disorder, Schizophrenia, Depression Integumentary: Yes (ABSCESSES) Blood Disorders: No Family Medical History Cardiovascular disease SOCIAL HISTORY: -SMOKES 1 PPD -ETOH--HISTORY OF HEAVY/DAILY USE--AT LEAST A PINT OF HARD LIQUOR /DAY. CLAIMS NO RECENT USE -DRUGS-HX OF SNORTING AND SMOKING METH, CLAIMS NO RECENT USE. SMOKES MARIJUANA DAILY PAST SURGICAL HISTORY: -HERNIA REPAIR -MULTIPLE ORTHOPEDIC SURGERIES RELATED TO TRAUMA -RIGHT KNEE SURGERY X 2 -RIGHT LEG ABSCESS I&D Physical Exam Vital Signs Capillary Refill : General Appearance: WD/WN, no apparent distress, other (FILTHY, MALODOROUS, COVERED IN ANIMAL HAIR) Extremities: no pedal edema, normal capillary refill, other (EXTENSIVE SORES/SCABS/SORES TO LOWER LEGS AND ARMS. SOME ON LEGS WITH MILD SURROUNDING ERYTHEMA. NO FLUCTUANCE, NO DRAINAGE. NO STREAKS. MOTOR/SENSORY/VASCULAR INTACT. WALKS WITHOUT DIFFICULTY. 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 Additional Impression: Aldfawoktu-voenpmuco-rdsovoj (DPT) vaccination administered at current visit Disposition: HOME, SELF-CARE Condition: Stable Departure-Patient Inst. Decision time for Depature: 05:00 Referrals: [facility] (PCP/Family) Primary Care Physician Patient Instructions: Cellulitis (Skin Infection), Adult ED, Diphtheria and Tetanus Toxoids, and Acellular Pertussis Vaccine Add. Discharge Instructions: CLEAN WOUNDS TWICE A DAY WITH ANTIBACTERIAL SOAP AND WATER, APPLY ANTIBIOTIC OINTMENT AND FRESH DRESSING TWICE A DAY TYLENOL AND MOTRIN NEEDED FOR PAIN FOLLOW UP WITH DR. DUARTE/[facility] IN 2-3 DAYS FOR FURTHER CARE Scripts Cephalexin (Cephalexin) 500 Mg Tablet 500 MG PO QID, #30 TAB 0 Refills Prov: CATHY AMAYA DO 11/11/21 Mupirocin (Mupirocin) 2 % Oint...g. 22 GM TP BID, #1 TUBE Prov: CATHY AMAYA DO 11/11/21 CATHY AMAYA DO Nov 11, 2021 05:24
[2021-11-11 05:29] VITALS: BP 150/103
[2021-11-11] MEDS ORDERED: MUPI22OI2 TP (05:29)
[2021-11-11] MEDS ORDERED: CEPH500T PO (05:29)
== END 2021-11-11 05:15 | disposition home or self-care (01) ==
LOC: EDUNIT# 04:53 → ER 04:56
DX: L98.9 Disorder of the skin and subcutaneous tissue, unspecified (principal); F17.210 Nicotine dependence, cigarettes, uncomplicated; Z23 Encounter for immunization
CPT/HCPCS: 90715

== ENCOUNTER 2022-02-24 15:15 | Emergency (ER) | payer OTHER ==
[~2022-02-24] VITALS: Ht 193 cm; Wt 110.0 kg
[~2022-02-24 15:15] MED LIST changes: +CEPH500T PO; +MUPI22OI2 TP
--- NOTE | 2022-02-24 16:19 | ED Back Pain ---
General Chief Complaint: Back Problems Stated Complaint: BACK PAIN Nursing Triage Note: PT TO ED BY EMS WITH C/O LOWER BACK PAIN. PT AMB FROM EMS COT TO BED. 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 REPORTS PAIN "12 ON SCALE FROM 1 TO 10." PT REPORTS HE WAS SUPPOSED TO SEE A NEUROSURGEON AT TODAY FOR BACK PAIN BUT HIS APPOINTMENT WAS CANCELLED. ALSO REPORTS HE WAS PRESCRIBED TRAMADOL FOR BACK PAIN, BUT DOESN'T TAKE THEM BECAUSE "THEY AREN'T STRONG ENOUGH." Source of Information: Patient Exam Limitations: No Limitations (JOEL PITTMAN APRN) History of Present Illness Date Seen by Provider: Feb 24, 2022 Time Seen by Provider: 16:19 Initial Comments This is a 36 yo male with history of Lumbar radiculopathy who presented to the ER via [facility] with c/o intractable low back pain that radiates down his right thigh and knee. Was scheduled with neurosurgeon at today but "appointment was cancelled because of overbooking". States he was prescribed Tramadol for pain but he does not take them because "they don't work". Has been bending and picking up heavy boxes at work the past several days, yesterday when he bent over he had sudden sharp pain. Pain is 10/10, sharp, stabbing, and radiates down back of right leg to knee. He is able to ambulate, does report severe pain with walking. No numbness or tingling. No saddle anesthesia. Denies fever, nausea, vomiting, changes in bowel or bladder function. (JOEL PITTMAN PROC TECH) Allergies and Home Medications Allergies Coded Allergies: Sulfa (Sulfonamide Antibiotics) (Verified Allergy, Unknown, 02/19/15) Patient Home Medication List Home Medication List Reviewed: Yes (JOEL PITTMAN APRN) Cefuroxime Axetil (Cefuroxime) 500 Mg Tablet, 500 MG PO BID Prescribed by: MRAU ALANIZ on 08/29/212028 Cephalexin (Cephalexin) 500 Mg Tablet, 500 MG PO QID Prescribed by: CATHY AMAYA on 11/11/21 9411 Cyclobenzaprine HCl (Cyclobenzaprine HCl) 10 Mg Tablet, 10 MG PO TID Prescribed by: ABRAHAM KINCAID on 09/11/21 1802 Gabapentin (Neurontin) 300 Mg Capsule, 300 MG PO TID Prescribed by: TEN ESCAMILLA on 09/14/212205 Hydrocodone/Acetaminophen (Hydrocodone-Acetamin 5-325 mg) 5 Mg-325 Mg Tablet, 1 TAB PO Q4H PRN for PAIN-MODERATE (5-7) Prescribed by: MARU ALANIZ on 08/29/212032 Hydrocodone/Acetaminophen (Hydrocodone-Acetamin 5-325 mg) 5 Mg-325 Mg Tablet, 1 TAB PO Q4H PRN for PAIN-MODERATE (5-7) Prescribed by: ABRAHAM KINCAID on 09/11/21 155 Hydrocodone/Acetaminophen (Hydrocodone-Acetamin 5-325 mg) 5 Mg-325 Mg Tablet, 1 TAB PO Q6H PRN for PAIN-MODERATE (5-7) Prescribed by: JOEL PITTMAN on 02/24/22 162 Lisinopril (Lisinopril) 5 Mg Tablet, Unknown Dose PO DAILY, (Reported) Entered as Reported by: ROE ESPINOSA on 05/11/21 2341 Methylprednisolone (Methylprednisolone Dose Pack) 4 Mg Tab.ds.pk, 4 MG PO UD Prescribed by: ABRAHAM KINCAID on 09/11/21 1555 Methylprednisolone (Methylprednisolone Dose Pack) 4 Mg Tab.ds.pk, 4 MG PO UD Prescribed by: JOEL PITTMAN on 02/24/22 162 Mupirocin (Mupirocin) 2 % Oint...g., 22 GM TP BID Prescribed by: CATHY AMAYA on 11/11/21 0529 Tramadol HCl (Ultram) 50 Mg Tablet, 50 MG PO Q6H PRN for PAIN-BREAKTHROUGH Prescribed by: TEN ESCAMILLA on 09/14/212206 Review of Systems Constitutional: see HPI (JOEL PITTMAN PROC TECH) Past Qdyosmv-Jpnyuk-Zvlpdg Hx Patient Social History Tobacco Use?: Yes Tobacco type used: Cigarettes Smoking Status: Current Everyday Smoker Use of E-Cig and/or Vaping dev: No Substance use?: Yes Substance type: Marijuana Substance frequency: Daily Alcohol Use?: No Pt feels they are or have been: No (JOEL PITTMAN PROC TECH) Immunizations Up To Date Influenza Vaccine Up-to-Date: No; Not Current First/Initial COVID19 Vaccinat: 05/19/2021 Second COVID19 Vaccination Maadn: 05/19/2021 Third COVID19 Vaccination Date: 05/19/2021 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 Surgeries: Yes (RIGHT KNEE, HERNIA REPAIR, multiple trauma related surgeries, abscess RLE) Abdominal, Orthopedic Respiratory: No Cardiac: Yes Hypertension Neurological: No Reproductive Disorders: No Sexually Transmitted Disease: No Genitourinary: Yes (SWOLLEN TESTICLES) Gastrointestinal: No Musculoskeletal: Yes (Lumbar disc disease) Degenerate Disk Disease, Chronic Back Pain, Fractures Endocrine: No HEENT: No Cancer: No Psychosocial: Yes (OSAWATOMIE X 2; OVERDOSES;POLYSUBSTANCE ABUSE) Sleep Difficulties, Anxiety, Suicide Attempts, Personality Disorder, Schizophrenia, Depression Integumentary: Yes (ABSCESSES) Blood Disorders: No (JOEL PITTMAN PROC TECH) Family Medical History Cardiovascular disease SOCIAL HISTORY: -SMOKES 1 PPD -ETOH--HISTORY OF HEAVY/DAILY USE--AT LEAST A PINT OF HARD LIQUOR /DAY. CLAIMS NO RECENT USE -DRUGS-HX OF SNORTING AND SMOKING METH, CLAIMS NO RECENT USE. SMOKES MARIJUANA DAILY PAST SURGICAL HISTORY: -HERNIA REPAIR -MULTIPLE ORTHOPEDIC SURGERIES RELATED TO TRAUMA -RIGHT KNEE SURGERY X 2 -RIGHT LEG ABSCESS I&D (JOEL PITTMAN PROC TECH) Physical Exam Vital Signs Vital Signs - First Documented 02/24/22 15:16 Temp 36.7 Pulse 96 Resp 18 B/P (MAP) 147/97 (114) Pulse Ox 98 O2 Delivery Room Air (TEN SILVA MD) Vital Signs Capillary Refill : Less Than 3 Seconds (JOEL PITTMAN PROC TECH) Height, Weight, BMI Height: 6'4" Weight: 284lbs. oz. 128.437546tx; 29.00 BMI Method:Stated General Appearance: No Apparent Distress, WD/WN, Anxious HEENT: PERRL/EOMI, Normal ENT Inspection Neck: Normal Inspection, Supple Cardiovascular: Regular Rate, Rhythm, No Murmur, Normal Peripheral Pulses Respiratory: Lungs Clear, Normal Breath Sounds, No Accessory Muscle Use, No Respiratory Distress Gastrointestinal: No Pulsatile Mass, Non Tender, Soft Back: Normal Inspection, Vertebral Tenderness (lumbar-sacral ), Other (+ right SLR ) Extremity: Normal Capillary Refill, Normal Inspection, Normal Range of Motion Neurologic/Psychiatric: Alert, Oriented x3, No Motor/Sensory Deficits, Normal 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 Multiple small disc protrusions. The most significant is at L4-L5 where it results in moderate spinal canal and bilateral lateral recess narrowing. 2. Scattered mild and moderate neural foraminal narrowing, detailed above. 3. No acute osseous findings. Will rx Medrol dose pack, reports this has helped in past. Will change to short course María Elena-tab. Encouraged to call neurosurgey today to reschedule follow up. Discharge POC reviewed and he is agreeable with plan. (JOEL PITTMAN APRN) Departure Impression Primary Impression: Bulging lumbar disc Disposition: 01 HOME, SELF-CARE Condition: Stable Departure-Patient Inst. Decision time for Depature: 16:21 (JOEL PITTMAN PROC TECH) Referrals: [facility] (PCP/Family) Primary Care Physician Patient Instructions: Degenerative Disc Disease Add. Discharge Instructions: Plan: 1. Call to reschedule appointment with your neurosurgeon. 2. Take Prednisone daily as directed with food to prevent GI upset. 3. May take Hydrocodone 5/325mg by mouth every 6 hours as needed for pain. 4. Avoid heavy lifting, bending, twisting, rest for next couple days until pain starts to subside. 5. Return for any new, concerning, or worsening symptoms. All discharge instructions reviewed with patient and/or family. Voiced und erstanding. Scripts Hydrocodone/Acetaminophen (Hydrocodone-Acetamin 5-325 mg) 5 Mg-325 Mg Tablet 1 TAB PO Q6H PRN for PAIN-MODERATE (5-7), #14 TAB 0 Refills Prov: TOYAJOEL Kinney PROC TECH 02/24/22 Methylprednisolone (Methylprednisolone Dose Pack) 4 Mg Tab.ds.pk 4 MG PO UD for 6 Days, #21 PKG 0 Refills PER DOSE PACK INSTRUCTIONS Prov: TOYAJOEL Kinney PROC TECH 02/24/22 Work/School Note: Work Release Form Date Seen in the Emergency Department: Feb 24, 2022 Return to Work: Feb 26, 2022 Restrictions: No Restrictions ATTENDING PHYSICIAN NOTE: I was physically present in the Emergency Department during the assessment and treatment of this patient. I was available to midlevel provider for consultation. I was not personally involved in the evaluation, treatment, or decision making process for this patient. (TEN SILVA MD) JOEL PITTMAN APRN Feb 24, 2022 16:19 TEN SILVA MD Feb 27, 2022 08:20
[2022-02-24] MEDS ORDERED: ACHD5005 PO (16:26)
[2022-02-24] MEDS ORDERED: METH4TAB10 PO (16:26)
[2022-02-24] MEDS ORDERED: ORPHENADRINE 60 MG/2 ML (NORFLEX) AMP (ED ONLY) IM ONE (16:30)
[2022-02-24] MEDS ORDERED: fentaNYL INJ 100 MCG/2 ML AMP IM ONE (16:30)
[2022-02-24 17:05] VITALS: BP 145/90
== END 2022-02-24 17:05 | disposition home or self-care (01) ==
LOC: EDUNIT# 15:15 → ER 15:17
DX: M51.36 Other intervertebral disc degeneration, lumbar region (principal); F17.210 Nicotine dependence, cigarettes, uncomplicated; Z87.39 Personal history of other diseases of the musculoskeletal system and connective tissue; Z28.311 Partially vaccinated for COVID-19
CPT/HCPCS: 99284

== ENCOUNTER 2022-05-26 09:31 | Emergency (ER) | payer OTHER ==
[~2022-05-26] VITALS: Ht 195 cm; Wt 100.0 kg
--- NOTE | 2022-05-26 09:46 | ED Cough/URI ---
General Chief Complaint: COVID19 Suspect/Confirmed Stated Complaint: LOSS OF TASTE , SMELL Nursing Triage Note: PT STATES HE LOST TASTE AND SMELL YESTERDAY, COUGH AND CONGESTION, UPPER CHEST PAIN WHEN COUGHING AND PAIN BETWEEN SHOLDER BLADES Source: patient, EMS Exam Limitations: no limitations History of Present Illness Date Seen by Provider: May 26, 2022 Time Seen by Provider: 09:31 Initial Comments 36-year-old male with past medical history of hypertension and tobacco smoking coming in via EMS due to loss of taste and smell, cough, and subjective fever a couple days ago. Wednesday he started noticing the cough, had 1 episode of dry heaving, felt warm at that time. Since then he is lost his taste and smell. He states he has been around multiple people with "head colds". States he is otherwise feeling well today without any chest pain, shortness of breath, abdominal pain, current nausea, diarrhea, rash, or any other concerns. Has not taken any medicines as of yet. Allergies and Home Medications Allergies Coded Allergies: Sulfa (Sulfonamide Antibiotics) (Verified Allergy, Unknown, 02/19/15) Patient Home Medication List Home Medication List Reviewed: Yes Cefuroxime Axetil (Cefuroxime) 500 Mg Tablet, 500 MG PO BID Prescribed by: MARU ALANIZ on 08/29/212028 Cephalexin (Cephalexin) 500 Mg Tablet, 500 MG PO QID Prescribed by: CATHY AMAYA on 11/11/21 0529 Cyclobenzaprine HCl (Cyclobenzaprine HCl) 10 Mg Tablet, 10 MG PO TID Prescribed by: ABRAHAM KINCAID on 09/11/211554 Gabapentin (Neurontin) 300 Mg Capsule, 300 MG PO TID Prescribed by: TEN ESCAMILLA on 09/14/212205 Hydrocodone/Acetaminophen (Hydrocodone-Acetamin 5-325 mg) 5 Mg-325 Mg Tablet, 1 TAB PO Q4H PRN for PAIN-MODERATE (5-7) Prescribed by: MARU ALANIZ on 08/29/212032 Hydrocodone/Acetaminophen (Hydrocodone-Acetamin 5-325 mg) 5 Mg-325 Mg Tablet, 1 TAB PO Q4H PRN for PAIN-MODERATE (5-7) Prescribed by: ABRAHAM KINCAID on 5/5/22 1555 Hydrocodone/Acetaminophen (Hydrocodone-Acetamin 5-325 mg) 5 Mg-325 Mg Tablet, 1 TAB PO Q6H PRN for PAIN-MODERATE (5-7) Prescribed by: JOEL PITTMAN on 02/24/22 1626 Lisinopril (Lisinopril) 5 Mg Tablet, Unknown Dose PO DAILY, (Reported) Entered as Reported by: ROE ESPINOSA on 05/11/21 2341 Methylprednisolone (Methylprednisolone Dose Pack) 4 Mg Tab.ds.pk, 4 MG PO UD Prescribed by: ABRAHAM KINCAID on 09/11/21 1555 Methylprednisolone (Methylprednisolone Dose Pack) 4 Mg Tab.ds.pk, 4 MG PO UD Prescribed by: JOEL PITTMAN on 02/24/22 1626 Mupirocin (Mupirocin) 2 % Oint...g., 22 GM TP BID Prescribed by: CATHY AMAYA on 11/11/21 0529 Tramadol HCl (Ultram) 50 Mg Tablet, 50 MG PO Q6H PRN for PAIN-BREAKTHROUGH Prescribed by: TEN ESCAMILLA on 09/14/212206 Review of Systems Review of Systems Constitutional: see HPI EENTM: No nose congestion Respiratory: cough Cardiovascular: No chest pain Gastrointestinal: no symptoms reported Genitourinary: no symptoms reported Musculoskeletal: no symptoms reported Skin: no symptoms reported Hematologic/Lymphatic: No Symptoms Reported Immunological/Allergic: no symptoms reported All Other Systems Reviewed Negative Unless Noted: Yes Past Otsucjb-Iwktdc-Lbqlvf Hx Patient Social History Tobacco Use?: Yes Tobacco type used: Cigarettes Smoking Status: Current Everyday Smoker Substance use?: Yes Substance type: Marijuana Alcohol Use?: Yes Alcohol type: Hard Liquor Alcohol Frequency: Once in a while Immunizations Up To Date First/Initial COVID19 Vaccinat: 05/19/2021 Second COVID19 Vaccination Madan: 05/19/2021 Third COVID19 Vaccination Date: 05/19/2021 Past Medical History Surgery/Hospitalization HX: Hernia repair and Right Knee repair twice, htn, bipolar, schizophrenia, depression/anxiety. Surgeries: Yes (RIGHT KNEE, HERNIA REPAIR, multiple trauma related surgeries, abscess RLE) Abdominal, Orthopedic Respiratory: No Cardiac: Yes Hypertension Neurological: No Reproductive Disorders: No Sexually Transmitted Disease: No Genitourinary: Yes (SWOLLEN TESTICLES) Gastrointestinal: No Musculoskeletal: Yes (Lumbar disc disease) Degenerate Disk Disease, Chronic Back Pain, Fractures Endocrine: No HEENT: No Cancer: No Psychosocial: Yes (OSAWATOMIE X 2; OVERDOSES;POLYSUBSTANCE ABUSE) Sleep Difficulties, Anxiety, Suicide Attempts, Personality Disorder, Schizophrenia, Depression Integumentary: Yes (ABSCESSES) Blood Disorders: No Family Medical History Cardiovascular disease SOCIAL HISTORY: -SMOKES 1 PPD -ETOH--HISTORY OF HEAVY/DAILY USE--AT LEAST A PINT OF HARD LIQUOR /DAY. CLAIMS NO RECENT USE -DRUGS-HX OF SNORTING AND SMOKING METH, CLAIMS NO RECENT USE. SMOKES MARIJUANA DAILY PAST SURGICAL HISTORY: -HERNIA REPAIR -MULTIPLE ORTHOPEDIC SURGERIES RELATED TO TRAUMA -RIGHT KNEE SURGERY X 2 -RIGHT LEG ABSCESS I&D Physical Exam Vital Signs - First Documented 05/26/22 09:32 Temp 35.9 Pulse 77 Resp 18 B/P (MAP) 146/87 (106) Pulse Ox 98 O2 Delivery Room Air Capillary Refill : Less Than 3 Seconds Height: 6'4" Weight: 284lbs. oz. 128.511884ek; 26.00 BMI Method:Stated General Appearance: WD/WN, no apparent distress Eyes: Bilateral Eye Normal Inspection HEENT: PERRL/EOMI, normal ENT inspection, pharynx normal Neck: non-tender, full range of motion, supple, normal inspection Respiratory: chest non-tender, lungs clear, normal breath sounds, no respiratory distress, no accessory muscle use Cardiovascular: regular rate, rhythm, no edema, no murmur Gastrointestinal: normal bowel sounds, non tender, soft; No distended, No guarding Extremities: normal range of motion, non-tender, normal inspection, no pedal edema, no calf tenderness, normal capillary refill Neurologic/Psychiatric: no motor/sensory deficits, alert, normal mood/affect Skin: normal color, warm/dry Lymphatic: no adenopathy Progress/Results/Core Measures Suspected Sepsis SIRS Temperature: Pulse: 77 Respiratory Rate: 18 Blood Pressure 146 /87 Mean: 106 Results/Orders Lab Results Laboratory Tests Test 05/26/22 09:39 Range/Units Influenza Type A (RT-PCR) Not Detected Not Detecte Influenza Type B (RT-PCR) Not Detected Not Detecte SARS-CoV-2 RNA (RT-PCR) Detected H Not Detecte My Orders Orders - KHANH LESLIE MD Influenza A And B By Pcr (05/26/22 09:34) Covid 19 Inhouse Test (05/26/22 09:34) Chest 1 View, Ap/Pa Only (05/26/22 09:42) Vital Signs/I&O 05/26/22 05/26/22 09:32 09:39 Temp 35.9 Pulse 77 Resp 18 B/P (MAP) 146/87 (106) Pulse Ox 98 O2 Delivery Room Air Room Air Capillary Refill : Less Than 3 Seconds Blood Pressure Mean: 106 Progress Note : Progress Note 36-year-old male with above history coming in due to loss of taste and smell with cough. ABCs were intact and vitals were stable on presentation with clear lung mcduffie and breathing comfortably. Chest x-ray clear with no acute abnormalities including no obvious pneumonia on my interpretation.. COVID test was positive, influenza test negative. He is otherwise low risk and I believe he can manage with supportive care at home. He was then discharged home in stable condition with strict return precautions Diagnostic Imaging Diagonstic Imaging: Xray Plain Films/CT/US/NM/MRI: chest Comments [facility], [place] NAME: BIANCA PRESTON [facility] REC#: [id number] PT STATUS: REG ER : 1985 PHYSICIAN: KHANH LESILE MD ADMIT DATE: 05/26/22/ER Signed Date of Exam:05/26/22 CHEST 1 VIEW, AP/PA ONLY EXAMINATION: Chest 1 view HISTORY: hemoptysis COMPARISON: 09/26/2014 FINDINGS: Heart size and pulmonary vasculature are normal. The lungs are clear without consolidation, pleural effusion, or pneumothorax. The osseous structures are intact. IMPRESSION: 1. No acute radiographic abnormality in the chest. Dictated by: Dictated on workstation # [id number] Dict: 05/26/22 1004 Trans: 05/26/22 1011 [id number] Interpreted by: ROE COREA DO Electronically signed by: ROE COREA DO 05/26/22 1011 Departure Impression Primary Impression: COVID-19 Disposition: 01 HOME, SELF-CARE Condition: Stable Departure-Patient Inst. Decision time for Depature: 10:17 Referrals: [facility] ([facility]Family) Primary Care Physician Patient Instructions: COVID-19 ED Add. Discharge Instructions: You do have COVID, no signs of pneumonia on your x-ray. If your symptoms started Wednesday, do not go to work until , and please wear a mask for 5 days after that. Take ibuprofen and/or Tylenol as needed for fever or body aches Work/School Note: Work Release Form Date Seen in the Emergency Department: May 26, 2022 Return to Work: May 28, 2022 Restrictions: Return-No Fever (24hrs) KHANH LESLIE MD May 26, 2022 09:46
--- NOTE | 2022-05-26 10:06 | Diagnostic Imaging Report ---
EXAMINATION: Chest 1 view HISTORY: hemoptysis COMPARISON: 09/26/2014 FINDINGS: Heart size and pulmonary vasculature are normal. The lungs are clear without consolidation, pleural effusion, or pneumothorax. The osseous structures are intact. IMPRESSION: 1. No acute radiographic abnormality in the chest. Dictated by: Dictated on workstation # [id number]
[2022-05-26 10:23] VITALS: BP 144/97
== END 2022-05-26 10:23 | disposition home or self-care (01) ==
LOC: EDUNIT# 09:31 → ER 09:32
DX: U07.1 COVID-19 (principal); R05.9 Cough, unspecified; R50.9 Fever, unspecified; R43.9 Unspecified disturbances of smell and taste; F17.210 Nicotine dependence, cigarettes, uncomplicated; Z28.311 Partially vaccinated for COVID-19
CPT/HCPCS: 71045; 87636

== ENCOUNTER 2022-07-07 17:30 | Emergency (ER) | payer OTHER ==
[2022-07-07] MEDS ORDERED: HYDROcodone/APAP 7.5 MG/325 MG (LORTAB, LORCET PLUS) TABLET PO STA (17:44)
[2022-07-07] MEDS ORDERED: methylPREDNISolone 125 MG (Solu-MEDROL) VIAL IM ONE (17:45)
[2022-07-07] MEDS ORDERED: ORPHENADRINE 60 MG/2 ML (NORFLEX) AMP (ED ONLY) IM ONE (17:45)
[2022-07-07] MEDS ORDERED: KETOROLAC 60 MG/2 ML VIAL IM ONE (17:45)
--- NOTE | 2022-07-07 17:48 | ED Back Pain ---
General Chief Complaint: Back Problems Stated Complaint: BACK PAIN Nursing Triage Note: PT TO RM 6 BY EMS WITH CC OF BACK PAIN THAT BEGAN YESTERDAY. PT STATES HE HAS 5 LUMBAR HERNIATED DISK. PT STATES WAS PLAYING KICKBALL OVER THE WEEKEND AND PAIN BECAME WORSE. Source of Information: Patient Exam Limitations: No Limitations History of Present Illness Date Seen by Provider: Jul 07, 2022 Time Seen by Provider: 17:46 Initial Comments Patient is a 36-year-old male who presents ED with low back pain. Patient has a history of bulging disc in his lower back. Patient states he played kickball this past Wednesday and was intoxicated. He cannot recall any specific injury. States he started having some pain in his lower back Wednesday. This progressively got worse. Sharp pain in the lower back with numbness and tingling radiating down to the left heel. Patient has been taken Yuri aspirin without much improvement. He states he was at work a few hours ago and states he could barely stand and continue working. Patient was brought to the ED by EMS. Denies of any bowel or urine incontinence, saddle paresthesia. He reports weakness in his thighs from standing for a long period of time. Pain in his abdomen's secondary to his lower back pain. Denies of any fever, chills, drug use. Patient was scheduled to follow-up with a neurosurgeon last March at [facility] but they canceled the appointment. He has not followed up since. Allergies and Home Medications Allergies Coded Allergies: Sulfa (Sulfonamide Antibiotics) (Verified Allergy, Unknown, 02/19/15) Patient Home Medication List Home Medication List Reviewed: Yes Cefuroxime Axetil (Cefuroxime) 500 Mg Tablet, 500 MG PO BID Prescribed by: MARU ALANIZ on 08/29/212028 Cephalexin (Cephalexin) 500 Mg Tablet, 500 MG PO QID Prescribed by: CATHY AMAYA on 11/11/21 4419 Cyclobenzaprine HCl (Cyclobenzaprine HCl) 10 Mg Tablet, 10 MG PO TID Prescribed by: ABRAHAM KINCAID on 09/11/21 887 Gabapentin (Neurontin) 300 Mg Capsule, 300 MG PO TID Prescribed by: TEN ESCAMILLA on 09/14/212205 Hydrocodone/Acetaminophen (Hydrocodone-Acetamin 5-325 mg) 5 Mg-325 Mg Tablet, 1 TAB PO Q4H PRN for PAIN-MODERATE (5-7) Prescribed by: MARU ALANIZ on 08/29/212032 Hydrocodone/Acetaminophen (Hydrocodone-Acetamin 5-325 mg) 5 Mg-325 Mg Tablet, 1 TAB PO Q4H PRN for PAIN-MODERATE (5-7) Prescribed by: ABRAHAM KINCAID on 09/11/21 1555 Hydrocodone/Acetaminophen (Hydrocodone-Acetamin 5-325 mg) 5 Mg-325 Mg Tablet, 1 TAB PO Q6H PRN for PAIN-MODERATE (5-7) Prescribed by: JOEL PITTMAN on 02/24/22 162 Hydrocodone/Acetaminophen (Hydrocodone-Acetamin 5-325 mg) 5 Mg-325 Mg Tablet, 1 TAB PO Q4H PRN for PAIN-MODERATE (5-7) Prescribed by: ABRAHAM KINCAID on 07/07/22 183 Lisinopril (Lisinopril) 5 Mg Tablet, Unknown Dose PO DAILY, (Reported) Entered as Reported by: ROE ESPINOSA on 05/11/21 2341 Methocarbamol (Methocarbamol) 750 Mg Tablet, 750 MG PO Q6-8HR Prescribed by: ABRAHAM KINCAID on 07/07/22 183 Methylprednisolone (Methylprednisolone Dose Pack) 4 Mg Tab.ds.pk, 4 MG PO UD Prescribed by: ABRAHAM KINCAID on 09/11/21 1555 Methylprednisolone (Methylprednisolone Dose Pack) 4 Mg Tab.ds.pk, 4 MG PO UD Prescribed by: JOEL PITTMAN on 02/24/22 162 Mupirocin (Mupirocin) 2 % Oint...g., 22 GM TP BID Prescribed by: CATHY AMAYA on 11/11/21 0529 Naproxen (Naproxen) 500 Mg Tablet, 500 MG PO Q12H Prescribed by: ABRAHAM KINCAID on 07/07/22 183 Tramadol HCl (Ultram) 50 Mg Tablet, 50 MG PO Q6H PRN for PAIN-BREAKTHROUGH Prescribed by: TEN ESCAMILLA on 09/14/212206 Review of Systems Constitutional: No chills, No diaphoresis, No malaise, No weakness EENTM: No blurred vision, No double vision Respiratory: No cough, No dyspnea on exertion Cardiovascular: No chest pain Gastrointestinal: No abdominal pain, No diarrhea, No nausea, No vomiting Genitourinary: No decreased output, No discharge Musculoskeletal: back pain, joint pain; No joint swelling, No muscle pain Skin: No change in color All Other Systems Reviewed Negative Unless Noted: Yes Past Oyjsump-Iluvcm-Nnhokd Hx Patient Social History Tobacco Use?: Yes Tobacco type used: Cigarettes Smoking Status: Current Everyday Smoker Substance use?: Yes Substance type: Marijuana Substance frequency: Daily Alcohol Use?: Yes Alcohol type: Beer Alcohol Frequency: Rarely Pt feels they are or have been: No Immunizations Up To Date First/Initial COVID19 Vaccinat: 05/19/2021 Second COVID19 Vaccination Madan: 05/19/2021 Third COVID19 Vaccination Date: 05/19/2021 Past Medical History Surgery/Hospitalization HX: Hernia repair and Right Knee repair twice, htn, bipolar, schizophrenia, depression/anxiety. Surgeries: Yes (RIGHT KNEE, HERNIA REPAIR, multiple trauma related surgeries, abscess RLE) Abdominal, Orthopedic Respiratory: No Cardiac: Yes Hypertension Neurological: No Reproductive Disorders: No Sexually Transmitted Disease: No Genitourinary: Yes (SWOLLEN TESTICLES) Gastrointestinal: No Musculoskeletal: Yes (Lumbar disc disease) Degenerate Disk Disease, Chronic Back Pain, Fractures Endocrine: No HEENT: No Cancer: No Psychosocial: Yes (OSAWATOMIE X 2; OVERDOSES;POLYSUBSTANCE ABUSE) Sleep Difficulties, Anxiety, Suicide Attempts, Personality Disorder, Schizophrenia, Depression Integumentary: Yes (ABSCESSES) Blood Disorders: No Family Medical History Cardiovascular disease SOCIAL HISTORY: -SMOKES 1 PPD -ETOH--HISTORY OF HEAVY/DAILY USE--AT LEAST A PINT OF HARD LIQUOR /DAY. CLAIMS NO RECENT USE -DRUGS-HX OF SNORTING AND SMOKING METH, CLAIMS NO RECENT USE. SMOKES MARIJUANA DAILY PAST SURGICAL HISTORY: -HERNIA REPAIR -MULTIPLE ORTHOPEDIC SURGERIES RELATED TO TRAUMA -RIGHT KNEE SURGERY X 2 -RIGHT LEG ABSCESS I&D Physical Exam Vital Signs Vital Signs - First Documented 07/07/22 17:31 Temp 36.5 Pulse 74 Resp 16 B/P (MAP) 164/106 (125) Pulse Ox 97 O2 Delivery Room Air Capillary Refill : Less Than 3 Seconds Height, Weight, BMI Height: 6'4" Weight: 284lbs. oz. 128.018935wo; 26.00 BMI Method:Stated General Appearance: No Apparent Distress, WD/WN HEENT: PERRL/EOMI, TMs Normal, Normal ENT Inspection, Pharynx Normal Neck: Full Range of Motion, Normal Inspection, Non Tender, Supple Cardiovascular: Regular Rate, Rhythm, No Edema, No Gallop, No JVD Respiratory: Chest Non Tender, Lungs Clear, Normal Breath Sounds, No Accessory Muscle Use Gastrointestinal: Normal Bowel Sounds, No Organomegaly, No Pulsatile Mass, Non Tender, Soft Back: Normal Inspection, Vertebral Tenderness (lumbar midline tenderness. Bilateral lumbar paraspinal muscle tenderness) Extremity: Normal Capillary Refill, Normal Inspection, Other (Positive left leg straight leg raise. Dorsiflexion plantarflexion strength 5 out of 5. Strength with left hip flexion 4-5. Neurovascular intact bilateral lower extremities) Neurologic/Psychiatric: Alert, Oriented x3, No Motor/Sensory Deficits, Normal Mood/Affect, photograph inspector II-XII Norm as Tested Skin: Normal Color, Warm/Dry Progress/Results/Core Measures Results/Orders My Orders Orders - KHANH MARTINEZ Ketorolac Injection (Toradol Injection) (07/07/22 17:45) Orphenadrine Inj (Ed Only) (Norflex Inje (07/07/22 17:45) Methylprednisolone Sod Succ (Solu-Medrol (07/07/22 17:45) Hydrocodone/Apap 7.5/325 Tab (Lortab 7. (07/07/22 17:44) Medications Given in ED Current Medications Medications Dose Ordered Sig/Rubens Route Start Time Stop Time Status Last Admin Dose Admin Ketorolac Tromethamine 30 mg ONCE ONCE IM 07/07/22 17:45 07/07/22 17:46 DC 07/07/22 17:54 30 MG Methylprednisolone Sodium Succinate 125 mg ONCE ONCE IM 07/07/22 17:45 07/07/22 17:46 DC 07/07/22 17:55 125 MG Orphenadrine Citrate 60 mg ONCE ONCE IM 07/07/22 17:45 07/07/22 17:46 DC 07/07/22 17:54 60 MG Vital Signs/I&O 07/07/22 17:31 Temp 36.5 Pulse 74 Resp 16 B/P (MAP) 164/106 (125) Pulse Ox 97 O2 Delivery Room Air Blood Pressure Mean: 125 Departure Communication (PCP) Patient presents ED with low back pain. After reviewing previous imaging, ER visits patient with a history of chronic low back pain. Patient had a MRI in September 2021 that showed multiple small disc protrusions most significant at L4-L5 with moderate spinal canal and bilateral lateral recess narrowing. He does have some numbness and tingling to the left leg. No neurological red flag findings such as bowel or urine incontinence, saddle paresthesia, leg paralysis. No urinary symptoms. Afebrile and denies any drug use. Positive straight leg raise left leg. Concerning for exacerbation of his chronic pain. Discussed all results with patient. Recommend trial of pain medication, Solu-Medrol for inflammation, muscle relaxer. Patient was observed here in the ED after 1 hour of receiving medication. Improvement of pain was able to ambulate with significant improvement. Will discharge with pain medication, anti- inflammatories, muscle relaxers. Recommend follow-up with primary care physician for further evaluation. Provided work note. Discussed stretching exercises. Avoid heavy lifting. Recommend following up with neurosurgery follow-up. Return precautions were discussed with patient. No imaging is warranted at this time. If worsening symptoms mentioned above to return back to ED Impression Primary Impression: Back pain Disposition: 01 HOME, SELF-CARE Condition: Stable Departure-Patient Inst. Decision time for Depature: 18:33 Referrals: [facility] Primary Care Physician Patient Instructions: Low Back Pain (DC) Scripts Hydrocodone/Acetaminophen (Hydrocodone-Acetamin 5-325 mg) 5 Mg-325 Mg Tablet 1 TAB PO Q4H PRN for PAIN-MODERATE (5-7), #8 TAB Prov: KHANH MARTINEZ 07/07/22 Methocarbamol (Methocarbamol) 750 Mg Tablet 750 MG PO Q6-8HR for Back Pain, #16 TAB Prov: KHANH MARTINEZ 07/07/22 Naproxen (Naproxen) 500 Mg Tablet 500 MG PO Q12H, #20 TAB Prov: KHANH MARTINEZ 07/07/22 Work/School Note: Work Release Form Date Seen in the Emergency Department: Jul 07, 2022 Return to Work: Jul 13, 2022 KHANH MARTINEZ Jul 07, 2022 17:48
[2022-07-07] MEDS ORDERED: METH-732 PO (18:35)
[2022-07-07] MEDS ORDERED: ACHD5005 PO (18:35)
[2022-07-07] MEDS ORDERED: NAPR-915 PO (18:35)
[2022-07-07 18:43] VITALS: BP 164/106
== END 2022-07-07 18:44 | disposition home or self-care (01) ==
LOC: EDUNIT# 17:30 → ER 17:31
DX: M54.50 Low back pain, unspecified (principal); G89.29 Other chronic pain; F17.210 Nicotine dependence, cigarettes, uncomplicated; Z87.39 Personal history of other diseases of the musculoskeletal system and connective tissue; Z28.311 Partially vaccinated for COVID-19
CPT/HCPCS: 99284

== ENCOUNTER 2022-08-01 16:52 | Emergency (ER) | payer OTHER ==
[~2022-08-01] VITALS: Ht 195 cm; Wt 99.8 kg
[~2022-08-01 16:52] MED LIST changes: +METH-732 PO; +NAPR-915 PO
--- NOTE | 2022-08-01 17:52 | ED Back Pain ---
General Chief Complaint: Back Problems Stated Complaint: LOWER BACK PAIN Nursing Triage Note: Patient ambulatory to ER w c/o lower back pain. L1-L5 herniated. Patient states he has new pain in the hips and "it hurts like a mother right now" Patient states he had steroid injections 4 weeks ago in the lower back region and they still hurt. "If the injection pain doesn't go away soon I will get claims account specialist involved." "I need something stronger than hydrocodone" Source of Information: Patient Exam Limitations: No Limitations History of Present Illness Date Seen by Provider: Aug 01, 2022 Time Seen by Provider: 17:35 Initial Comments Patient is a 36-year-old male who presents to the emergency room with a chief complaint of exacerbation of chronic low back pain. He states that he woke up this morning and had pain so severe that he was unable to get out of bed. He tells me he has a history of "herniated disks" diagnosed by MRI at this facility a year ago. He has had a few visits here for pain management. The patient tells me that he was kicked off the premises of [facility] and told never to come back. He also states that he cannot get a follow-up appointment with neurosurgery due to them "being backed up 2 or 3 years due to COVID". Patient states that he also has pain in his bilateral hips from injections of steroid, muscle relaxer and pain medication given at this facility 1 month ago. He states laying flat exacerbates his pain. Sitting upright makes it better. He endorses numbness down the left leg. He states he cannot dorsiflex his left foot. Denies incontinence. Patient is very agitated sitting at the end of the bed giving his story. He states that he is considering getting "fentanyl off the street" and has a "good lead in [place] in [place]" to control his pain. He mentions that he has used fentanyl patches in the past for his pain. He states hydrocodone is like "taking TicTac's". He states his pain is so bad that he wants to "blow my brains out". I spoke with him about suicidal ideation and the fact that he is saying that his pain is so bad that he is considering ending his own life would be concerning enough to have him placed on an involuntary hold for psychiatric evaluation. He states "good luck with that I will blow this bitch if I want to". Poor eye contact. Poor efforts at neurologic testing (straight leg raise and dorsi and plantar flexion of the left leg) patient noted to ambulate into the department without any difficulty, no foot drop. Timing/Duration: Other (1 year; worse this morning) Severity: Severe Pain/Injury Location: Back Radiation: Buttocks, Other (bilateral hips) Associated Symptoms: sensory/motor loss ("numbness" left leg), lower back pain; No loss of bladder control, No loss of bowel control Allergies and Home Medications Allergies Coded Allergies: Sulfa (Sulfonamide Antibiotics) (Verified Allergy, Unknown, 02/19/15) Patient Home Medication List Home Medication List Reviewed: Yes Cefuroxime Axetil (Cefuroxime) 500 Mg Tablet, 500 MG PO BID Prescribed by: MARU ALANIZ on 08/29/212028 Cephalexin (Cephalexin) 500 Mg Tablet, 500 MG PO QID Prescribed by: CATHY AMAYA on 11/11/21 05 Cyclobenzaprine HCl (Cyclobenzaprine HCl) 10 Mg Tablet, 10 MG PO TID Prescribed by: ABRAHAM KINCAID on 09/11/21 155 Gabapentin (Neurontin) 300 Mg Capsule, 300 MG PO TID Prescribed by: TEN ESCAMILLA on 09/14/212205 Gabapentin (Gabapentin) 400 Mg Capsule, 400 MG PO TID Prescribed by: CHICA ALMANZA on 08/01/22 180 Hydrocodone/Acetaminophen (Hydrocodone-Acetamin 5-325 mg) 5 Mg-325 Mg Tablet, 1 TAB PO Q4H PRN for PAIN-MODERATE (5-7) Prescribed by: MARU ALANIZ on 08/29/212032 Hydrocodone/Acetaminophen (Hydrocodone-Acetamin 5-325 mg) 5 Mg-325 Mg Tablet, 1 TAB PO Q4H PRN for PAIN-MODERATE (5-7) Prescribed by: ABRAHAM KINCAID on 09/11/21 155 Hydrocodone/Acetaminophen (Hydrocodone-Acetamin 5-325 mg) 5 Mg-325 Mg Tablet, 1 TAB PO Q6H PRN for PAIN-MODERATE (5-7) Prescribed by: JOEL PITTMAN on 02/24/22 1626 Hydrocodone/Acetaminophen (Hydrocodone-Acetamin 5-325 mg) 5 Mg-325 Mg Tablet, 1 TAB PO Q4H PRN for PAIN-MODERATE (5-7) Prescribed by: ABRAHAM KINCAID on 07/07/22 183 Hydrocodone/Acetaminophen (Hydrocodone-Acetamin 5-325 mg) 5 Mg-325 Mg Tablet, 1 TAB PO Q6H PRN for PAIN-MODERATE (5-7) Prescribed by: CHICA ALMANZA on 08/01/22 180 Lisinopril (Lisinopril) 5 Mg Tablet, Unknown Dose PO DAILY, (Reported) Entered as Reported by: ROE ESPINOSA on 05/11/21 2341 Methocarbamol (Methocarbamol) 750 Mg Tablet, 750 MG PO Q6-8HR Prescribed by: ABRAHAM KINCAID on 07/07/221834 Methocarbamol (Methocarbamol) 500 Mg Tablet, 1,500 MG PO Q8H PRN for SPASMS Prescribed by: CHICA ALMANZA on 08/01/221806 Methylprednisolone (Methylprednisolone Dose Pack) 4 Mg Tab.ds.pk, 4 MG PO UD Prescribed by: ABRAHAM KINCAID on 09/11/21 1555 Methylprednisolone (Methylprednisolone Dose Pack) 4 Mg Tab.ds.pk, 4 MG PO UD Prescribed by: JOEL PITTMAN on 02/24/22 1626 Mupirocin (Mupirocin) 2 % Oint...g., 22 GM TP BID Prescribed by: CATHY AMAYA on 11/11/21 0529 Naproxen (Naproxen) 500 Mg Tablet, 500 MG PO Q12H Prescribed by: ABRAHAM KINCAID on 07/07/22 183 Prednisone (Prednisone) 10 Mg Tab.ds.pk, 10 MG PO DAILY Prescribed by: CHICA ALMANZA on 08/01/221806 Tramadol HCl (Ultram) 50 Mg Tablet, 50 MG PO Q6H PRN for PAIN-BREAKTHROUGH Prescribed by: TEN ESCAMILLA on 09/14/212206 Review of Systems Constitutional: see HPI EENTM: no symptoms reported Respiratory: no symptoms reported Cardiovascular: no symptoms reported Gastrointestinal: no symptoms reported Genitourinary: no symptoms reported Musculoskeletal: back pain Skin: other (tenderness upper buttocks medially bilaterally) Past Jlixvcx-Xwwcuz-Fseizx Hx Patient Social History Tobacco Use?: Yes Tobacco type used: Cigarettes Smoking Status: Current Everyday Smoker Substance use?: Yes Substance type: Marijuana Substance frequency: Daily Alcohol Use?: Yes Alcohol Frequency: Several times a month Immunizations Up To Date First/Initial COVID19 Vaccinat: 05/19/2021 Second COVID19 Vaccination Madan: 05/19/2021 Third COVID19 Vaccination Date: 05/19/2021 COVID19 Vaccine Cloth Classer: Nujira Past Medical History Surgery/Hospitalization HX: Hernia repair and Right Knee repair twice, htn, bipolar, schizophrenia, depression/anxiety. Surgeries: Yes (RIGHT KNEE, HERNIA REPAIR, multiple trauma related surgeries, abscess RLE) Abdominal, Orthopedic Respiratory: No Cardiac: Yes Hypertension Neurological: No Reproductive Disorders: No Sexually Transmitted Disease: No Genitourinary: Yes (SWOLLEN TESTICLES) Gastrointestinal: No Musculoskeletal: Yes (Lumbar disc disease) Degenerate Disk Disease, Chronic Back Pain, Fractures Endocrine: No HEENT: No Cancer: No Psychosocial: Yes (OSAWATOMIE X 2; OVERDOSES;POLYSUBSTANCE ABUSE) Sleep Difficulties, Anxiety, Suicide Attempts, Personality Disorder, Schizophrenia, Depression Integumentary: Yes (ABSCESSES) Blood Disorders: No Family Medical History Cardiovascular disease SOCIAL HISTORY: -SMOKES 1 PPD -ETOH--HISTORY OF HEAVY/DAILY USE--AT LEAST A PINT OF HARD LIQUOR /DAY. CLAIMS NO RECENT USE -DRUGS-HX OF SNORTING AND SMOKING METH, CLAIMS NO RECENT USE. SMOKES MARIJUANA DAILY PAST SURGICAL HISTORY: -HERNIA REPAIR -MULTIPLE ORTHOPEDIC SURGERIES RELATED TO TRAUMA -RIGHT KNEE SURGERY X 2 -RIGHT LEG ABSCESS I&D Physical Exam Vital Signs Vital Signs - First Documented 08/01/22 16:59 Temp 36.4 Pulse 92 Resp 18 B/P (MAP) 160/84 (109) Pulse Ox 99 O2 Delivery Room Air Capillary Refill : Less Than 3 Seconds Height, Weight, BMI Height: 6'4" Weight: 284lbs. oz. 128.623804ux; 26.00 BMI Method:Stated General Appearance: WD/WN, Other (agitated) HEENT: PERRL/EOMI Neck: Full Range of Motion Cardiovascular: Regular Rate, Rhythm, Normal Peripheral Pulses Respiratory: Lungs Clear, Normal Breath Sounds, No Accessory Muscle Use, No Respiratory Distress Gastrointestinal: Normal Bowel Sounds, Soft Back: Normal Inspection, Other (tenderness to palpation at the apex of the gluteal cleft) Extremity: Normal Capillary Refill, Normal Range of Motion, Non Tender, No Calf Tenderness, No Pedal Edema Neurologic/Psychiatric: Alert, Oriented x3, Normal Mood/Affect, supervisor reclamation II-XII Norm as Tested, Sensory Deficit (Left leg (entire); can raise left leg off the bed - causes pain in the back - does not exacerbate pain down the left leg. Will not dorsiflex left foot - but has good strength, can plantar flex as well (suspect poor effort)) Skin: Normal Color, Warm/Dry Progress/Results/Core Measures Results/Orders My Orders Orders - CHICA ALMANZA MD Dexamethasone Injection (Decadron Injec (08/01/22 18:15) Ketorolac Injection (Toradol Injection) (08/01/22 18:15) Orphenadrine Inj (Ed Only) (Norflex Inje (08/01/22 18:15) Vital Signs/I&O 08/01/22 08/01/22 16:59 18:50 Temp 36.4 Pulse 92 97 Resp 18 18 B/P (MAP) 160/84 (109) 138/90 Pulse Ox 99 96 O2 Delivery Room Air Room Air Blood Pressure Mean: 109 Progress Progress Note : Time: 17:50 Progress Note Patient seen and evaluated by me, 36-year-old with low back pain. Evaluation today includes physical exam. Pertinent physical exam findings, well-developed well-nourished 36-year-old male in no acute distress, sitting comfortably on the end of the bed hunched over looking at his phone. Moves all extremities equally. Tenderness to even light skin palpation at the top of the buttocks bilaterally over the sacrum. Patient demonstrates poor effort on straight leg raise of the left. Straight leg raise is not positive he complains of back pain with elevation of the leg approximately 10 to 15 degrees off the bed. Is able to lift the right without any distress or discomfort. Poor effort at dorsi and plantarflexion of the feet. Patient states decreased sensation down the entirety of the left leg. Noted to ambulate without difficulty. DTRs intact 1+ patellar bilaterally. No point tenderness over the lumbar spine no percussive tenderness. No incontinence. Rest of the physical exam is unremarkable, heart is regular lungs are clear, abdomen is soft. Differential diagnosis, chronic low back pain, radiculopathy, drug-seeking behavior Patient spent quite a long time discussing pain medications and stating that hydrocodone "does not work". He relates that he was kicked out of [facility] and told not to come back on the property. This implies the patient has been acting inappropriately when seeing other medical providers. He is asking for "something stronger". States that his [facility] follow-up cannot happen due to "COVID" and a backlog of cases. Has not sought out physical therapy treatment. He states this "does not work". Has not tried any [id number] medications other than aspirin for his pain. Has not had local follow-up with primary care providers. States that his doctor will not give him any pain medicine. Makes statements about "blowing his head off" due to the pain but becomes belligerent when I discussed the mental health aspects of pain control. Verbally aggressive. Patient is offered steroids, muscle relaxers and anti- inflammatories. Patient has no concerning findings for acute cauda equina syndrome. Patient is inconsistent with his exam as he is moving around the room in the bed quite comfortably but complaining of a significant amount of pain. Do not suspect significant radiculopathy with the exam provided. I am going to give him 5 tablets of 5 mg hydrocodone. I advised him that the emergency department is not the place for chronic pain management. His MRI was reviewed by me from a year ago and showed no significant neurologic compromise. I recommended he talk to his primary care provider about having a second MRI done. Care passed to Dr. Caicedo with discharge with medications being given to make sure there are no adverse reactions. Patient has been given these same medications in the past, I don not suspect there will be any complication. Discharge paperwork has been completed by me. Departure Impression Primary Impression: Acute exacerbation of chronic low back pain Additional Impression: Drug-seeking behavior Disposition: 01 HOME, SELF-CARE Condition: Stable Departure-Patient Inst. Decision time for Depature: 18:00 Referrals: SONAL DUARTE MD (PCP/Family) Primary Care Physician Patient Instructions: Low Back Pain ED Add. Discharge Instructions: Use over the counter Naproxen (Aleve) 2 pills twice a day for pain. Always take this with food. Muscle relaxers as needed up to 3 times a day. You can use over the counter Lidocaine patches to the affected area - please Follow packaging instructions. Pain medications only as needed for severe pain. Hydrocodone 1 every 6 hours. Gabapentin as directed. 400mg 3 times a day. You can call [facility] for follow up - they have pain management physicians as well as Ortho Spine doctors. Physical Therapy may do very well for you for pain management as well. You can call and make your own appointment at any [facility] clinic in [place]. There are multiple providers in [place] and your primary care doctor can refer you as well. Scripts Gabapentin (Gabapentin) 400 Mg Capsule 400 MG PO TID, #30 CAP Prov: CHICA ALMANZA MD 08/01/22 Hydrocodone/Acetaminophen (Hydrocodone-Acetamin 5-325 mg) 5 Mg-325 Mg Tablet 1 TAB PO Q6H PRN for PAIN-MODERATE (5-7), #5 TAB Prov: CHICA ALMANZA MD 08/01/22 Prednisone (Prednisone) 10 Mg Tab.ds.pk 10 MG PO DAILY, #42 EA Take 6 tabs(60mg)daily,decrease by 1 tab(10mg)every other day. Prov: CHICA ALMANZA MD 08/01/22 Methocarbamol (Methocarbamol) 500 Mg Tablet 1500 MG PO Q8H PRN for SPASMS, #30 TAB Prov: CHICA ALMANZA MD 08/01/22 Copy Copies To 1: SONAL DUARTE MD, KATHRYN M MD Aug 01, 2022 17:52
[2022-08-01] MEDS ORDERED: ACHD5005 PO (18:07)
[2022-08-01] MEDS ORDERED: METH-731 PO (18:07)
[2022-08-01] MEDS ORDERED: PRED10TA22 PO (18:07)
[2022-08-01] MEDS ORDERED: GABA-490 PO (18:09)
[2022-08-01] MEDS ORDERED: ORPHENADRINE 60 MG/2 ML (NORFLEX) AMP (ED ONLY) IM ONE (18:15)
[2022-08-01] MEDS ORDERED: KETOROLAC 60 MG/2 ML VIAL IM ONE (18:15)
[2022-08-01 18:50] VITALS: BP 138/90
== END 2022-08-01 18:48 | disposition home or self-care (01) ==
LOC: EDUNIT# 16:52 → ER 16:54
DX: M54.50 Low back pain, unspecified (principal); G89.29 Other chronic pain; F17.210 Nicotine dependence, cigarettes, uncomplicated; Z87.39 Personal history of other diseases of the musculoskeletal system and connective tissue

== ENCOUNTER 2022-08-14 01:34 | Emergency (ER) | payer OTHER ==
[~2022-08-14] VITALS: Ht 195 cm; Wt 99.8 kg
[~2022-08-14 01:34] MED LIST changes: +GABA-490 PO; +METH-731 PO; +PRED10TA22 PO
--- NOTE | 2022-08-14 01:55 | ED Fall/Injury ---
General Chief Complaint: Trauma-Non Activation Stated Complaint: FELL OUT OF BED Nursing Triage Note: brought in by [facility] after rolling out of bed striking head on dresser. c/o left neck pain radiating to left shoulder. c-collar in place. also c/o continued chronic lower back pain. Source: patient History of Present Illness Date Seen by Provider: Aug 14, 2022 Time Seen by Provider: 01:38 Initial Comments PT ARRIVES VIA EMS FROM HOME--CERVICAL COLLAR PLACED BY EMS PT STATES "I GOT DRUNK AND FELL OFF THE BED" STATES HE WAS NOT ASLEEP AT THE TIME, STATES "IT'S BECAUSE I'M DRUNK--I'M STILL DRUNK" --STATES HE HAS BEEN DRINKING BEER--"ALOT", PER PT, HE WILL NOT STATE HOW MUCH HE HAS DRANK TONIGHT. STATES TO ME THAT HE HIT HIS HEAD ON THE WALL WHEN HE FELL OFF THE BED. DENIES LOSS OF CONSCIOUSNESS-STATES HE IMMEDIATELY CALLED 911 C/O HEAD PAIN, NECK PAIN AND BACK PAIN NO NEW PARESTHESIAS OR MOTOR DEFICITS NO LOSS OF BOWEL OR BLADDER CONTROL STATES HE HAS "5 HERNIATED DISCS" IN HIS LOW BACK--STATES HE HAD AN MRI DONE LAST YEAR HE DENIES ANY PRIOR INJURY TO BACK HE STATES THAT FOR THE LAST COUPLE OF WEEKS HE HAS BEEN HAVING NUMBNESS IN HIS LEFT ARM AND LEFT LEG--NOT NOW. HE ALSO STATES FOR THE LAST COUPLE OF WEEKS HE CAN'T EXTEND HIS RIGHT 4TH AND 5TH FINGERS. --NO DIFFERENT TODAY Location Injury Occurred: home Allergies and Home Medications Allergies Coded Allergies: Sulfa (Sulfonamide Antibiotics) (Verified Allergy, Unknown, 02/19/15) Patient Home Medication List Cyclobenzaprine HCl (Cyclobenzaprine HCl) 10 Mg Tablet, 10 MG PO TID Prescribed by: ABRAHAM KINCAID on 09/11/211554 Gabapentin (Neurontin) 300 Mg Capsule, 300 MG PO TID Prescribed by: TEN ESCAMILLA on 09/14/212205 Hydrocodone/Acetaminophen (Hydrocodone-Acetamin 5-325 mg) 5 Mg-325 Mg Tablet, 1 TAB PO Q4H PRN for PAIN-MODERATE (5-7) Prescribed by: MARU ALANIZ on 08/29/212032 Methylprednisolone (Methylprednisolone Dose Pack) 4 Mg Tab.ds.pk, 4 MG PO UD Prescribed by: ABRAHAM KINCAID on 09/11/21 9465 Past Ewvjjbm-Zwjano-Lvqiea Hx Patient Social History Tobacco Use?: Yes Substance use?: Yes Substance type: Methamphetamine, Marijuana Alcohol Use?: Yes Alcohol type: Hard Liquor Alcohol Frequency: Daily Pt feels they are or have been: No Immunizations Up To Date First/Initial COVID19 Vaccinat: x1 Second COVID19 Vaccination Madan: 05/19/2021 Third COVID19 Vaccination Date: 05/19/2021 Past Medical History Surgery/Hospitalization HX: Hernia repair and Right Knee repair twice, htn, bipolar, schizophrenia, depression/anxiety. chronic lower back pain Surgeries: Yes (RIGHT KNEE, HERNIA REPAIR, multiple trauma related surgeries, abscess RLE) Abdominal, Orthopedic Respiratory: No Cardiac: Yes Hypertension Neurological: No Reproductive Disorders: No Sexually Transmitted Disease: No Genitourinary: Yes (SWOLLEN TESTICLES) Gastrointestinal: No Musculoskeletal: Yes (Lumbar disc disease) Degenerate Disk Disease, Chronic Back Pain, Fractures Endocrine: No HEENT: No Cancer: No Psychosocial: Yes (OSAWATOMIE X 2; OVERDOSES;POLYSUBSTANCE ABUSE) Sleep Difficulties, Anxiety, Suicide Attempts, Personality Disorder, Schizophrenia, Depression Integumentary: Yes (ABSCESSES) Blood Disorders: No Family Medical History Cardiovascular disease SOCIAL HISTORY: -SMOKES 1 PPD -ETOH--HISTORY OF HEAVY/DAILY USE--AT LEAST A PINT OF HARD LIQUOR /DAY. CLAIMS NO RECENT USE -DRUGS-HX OF SNORTING AND SMOKING METH, CLAIMS NO RECENT USE. SMOKES MARIJUANA DAILY PAST SURGICAL HISTORY: -HERNIA REPAIR -MULTIPLE ORTHOPEDIC SURGERIES RELATED TO TRAUMA -RIGHT KNEE SURGERY X 2 -RIGHT LEG ABSCESS I&D Physical Exam Vital Signs Vital Signs - First Documented 08/14/22 01:37 Temp 36.2 Pulse 82 Resp 16 B/P (MAP) 145/93 (110) Pulse Ox 95 O2 Delivery Room Air Capillary Refill : Less Than 3 Seconds Height, Weight, BMI Height: 6'4" Weight: 284lbs. oz. 128.218256st; 26.00 BMI Method:Stated Progress/Results/Core Measures Results/Orders My Orders Orders - CATHY AMAYA DO Ct Head/Cervical Spine Wo (08/14/22 01:51) Ct Thoracic/Lumbar Spine Wo (08/14/22 01:51) Cervical Collar (08/14/22 01:56) Drug Screen Stat (Urine) (08/14/22 03:46) Ua Culture If Indicated (08/14/22 03:46) Vital Signs/I&O 08/14/22 08/14/22 01:37 03:42 Temp 36.2 36.4 Pulse 82 79 Resp 16 16 B/P (MAP) 145/93 (110) 136/87 Pulse Ox 95 97 O2 Delivery Room Air Room Air Blood Pressure Mean: 110 Progress Progress Note : Progress Note PT REMOVED C-COLLAR AND REFUSED TO PUT IT BACK ON ON RETURN FROM CT, SLEPT FOR REMAINDER OF ER STAY WALKS UPRIGHT AND MOVES WITHOUT DIFFICULTY AT DISMISSAL, AND HAS NO COMPLAINTS AT DISMISSAL REVIEWED TEST RESULTS WITH PT, AND PT STATES "I KNEW IT WAS FINE" Departure Impression Primary Impression: Fall from bed Additional Impressions: Minor head injury without loss of consciousness CERVICAL, THORACIC AND LUMBAR STRAIN Alcohol use Disposition: 01 HOME, SELF-CARE Condition: Stable Departure-Patient Inst. Decision time for Depature: 03:30 Referrals: SONAL DUARTE MD (PCP/Family) Primary Care Physician Patient Instructions: Alcohol Use Disorder ED, Back Muscle Strain (DC), Cervical Sprain ED, Head Injury in Adults (DC) Add. Discharge Instructions: HOME, REST ALTERNATE ICE AND HEAT TO SORE AREAS AT 20 MINUTE INTERVALS NO ALCOHOL TAKE YOUR HOME MEDICATIONS PRESCRIBED FOLLOW UP WITH [facility] IN 3-4 DAYS IF NO IMPROVEMENT, RETURN TO ER IF SYMPTOMS WORSEN All discharge instructions reviewed with patient and/or family. Voiced understanding. CATHY AMAYA DO Aug 14, 2022 01:55
[2022-08-14 03:42] VITALS: BP 136/87
[2022-08-14 03:57] LABS: BILIRUBIN,URINE NEGATIVE (NEGATIVE); CLARITY,URINE CLEAR; COLOR,URINE YELLOW; GLUCOSE, URINE (UA) NEGATIVE (NEGATIVE); KETONES,URINE NEGATIVE (NEGATIVE); LEUKOCYTE ESTERASE ,URINE NEGATIVE (NEGATIVE); NITRITE,URINE NEGATIVE (NEGATIVE); PROTEIN,URINE NEGATIVE (NEGATIVE)
[2022-08-14 04:04] LABS: BACTERIA,URINE NEGATIVE /HPF
[2022-08-14 04:13] LABS: AMPHETAMINE SCREEN, URINE NEGATIVE (NEGATIVE); BARBITURATE SCREEN URINE NEGATIVE (NEGATIVE); BENZODIAZEPINES SCREEN URINE NEGATIVE (NEGATIVE); CANNABINOID SCREEN, URINE POSITIVE (NEGATIVE); COCAINE SCREEN URINE NEGATIVE (NEGATIVE); METHADONE STAT NEGATIVE (NEGATIVE); OPIATE SCREEN URINE NEGATIVE (NEGATIVE); OXYCODONE STAT NEGATIVE (NEGATIVE); PROPOXYPHENE STAT NEGATIVE (NEGATIVE); TRICYCLIC ANTIDEPRESSANTS SCRE NEGATIVE (NEGATIVE)
--- NOTE | 2022-08-14 07:11 | Diagnostic Imaging Report ---
PROCEDURE: CT thoracic and lumbar spine without contrast. TECHNIQUE: Multiple contiguous axial images were obtained through the thoracic and lumbar spine without the use of intravenous contrast. Sagittal and coronal reformations were then performed. All CT scans use one or more of the following dose optimizing techniques: automated exposure control, MA and/or KvP adjustment based on a patient size and exam type, or iterative reconstruction. INDICATION: Trauma, fall, mid and low back injury COMPARISON: Lumbar spine MRI from 09/11/2021 FINDINGS: Thoracic spine: Alignment of the thoracic spine appears normal with no spondylolisthesis. Vertebral body heights are preserved. No acute fracture is seen. There are mild degenerative changes in the mid to lower thoracic spine. There is dependent atelectasis in the lung bases. Surrounding soft tissues demonstrate no acute abnormality. Lumbar spine: Alignment of the lumbar spine appears normal with no spondylolisthesis. Vertebral body heights are preserved. There is mild multilevel disc height loss and degenerative change. No acute fracture is seen. Soft tissues about the lumbar spine demonstrate no acute abnormality. IMPRESSION:. Mild degenerative changes in the thoracic and lumbar spine with no acute osseous abnormalities seen. No significant changes from the preliminary report. Dictated by: Dictated on workstation # [id number]
--- NOTE | 2022-08-14 07:52 | Diagnostic Imaging Report ---
PROCEDURE: CT head and CT cervical spine without contrast. TECHNIQUE: Multiple contiguous axial images were obtained through the brain and cervical spine without the use of intravenous contrast. Sagittal and coronal reformations through the cervical spine were then performed. Auto Exposure Controls were utilized during the CT exam to meet ALARA standards for radiation dose reduction. INDICATION: Trauma, fall, head and neck injury COMPARISON: None FINDINGS: The ventricles and cortical sulci are age-appropriate. There is no midline shift or mass effect. No acute intracranial hemorrhage is seen. There is no CT evidence of acute territorial ischemia. The calvarium appears intact. Visualized paranasal sinuses are clear. Alignment of the cervical spine appears normal. There is moderate to marked degenerative change at C4-C5 and C5-C6, greater than expected for age. There is no spondylolisthesis. No acute fracture is seen. No bony fragments or hyperdense fluid collections are seen in the spinal canal. Surrounding soft tissues demonstrate no acute abnormalities. IMPRESSION: 1. No acute intracranial hemorrhage or calvarium fracture. 2. Degenerative changes in the cervical spine, greater than expected for age. No acute osseous abnormalities seen. No significant changes from the preliminary report. Dictated by: Dictated on workstation # [id number]
== END 2022-08-14 03:43 | disposition home or self-care (01) ==
LOC: EDUNIT# 01:34 → ER 01:35
DX: S16.1XXA Strain of muscle, fascia and tendon at neck level, initial encounter (principal); S39.012A Strain of muscle, fascia and tendon of lower back, initial encounter; S29.012A Strain of muscle and tendon of back wall of thorax, initial encounter; S09.90XA Unspecified injury of head, initial encounter; F10.20 Alcohol dependence, uncomplicated; F17.210 Nicotine dependence, cigarettes, uncomplicated; Z87.39 Personal history of other diseases of the musculoskeletal system and connective tissue; Z87.828 Personal history of other (healed) physical injury and trauma; W06.XXXA Fall from bed, initial encounter; W22.01XA Walked into wall, initial encounter
CPT/HCPCS: 70450; 72125; 72128; 72131; 80306; 81000

== ENCOUNTER 2022-11-11 21:01 | Emergency (ER) | payer SELFPAY ==
[~2022-11-11] VITALS: Ht 165.6 cm; Wt 108.9 kg
[2022-11-11 21:11] VITALS: BP 158/91
[2022-11-11] MEDS ORDERED: TETANUS,DIPTH,PERTUSS P/F (BOOSTRIX) 0.5 ML VIAL IM ONE (21:15)
--- NOTE | 2022-11-11 21:20 | ED EENT ---
History of Present Illness General Chief Complaint: Nasal Problems Stated Complaint: NOSE INJURY Nursing Triage Note: PT AMB TO ED BY POV WITH C/O NOSE INJURY. PT REPORTS HE HIT HIS FACE ON A SHOWER DOOR THIS MORNING, NO NOSE BLEEDS. DENIES PAIN AT THIS TIME, BUT IS HAVING DIFFICULTY BREATHING OUT OF R NOSTRIL. Source: patient History of Present Illness Date Seen by Provider: Nov 11, 2022 Time Seen by Provider: 21:10 Initial Comments PT ARRIVES VIA POV FROM HOME C/O INJURY TO RIGHT SIDE OF NOSE AT 0830 THIS AM STATES HE WAS GETTING READY FOR WORK THIS MORNING AND SHOWER DOOR HIT HIM ON THE RIGHT SIDE OF HIS NOSE NO BLOODY NOSE NO PAIN TO NOSE NO LOSS OF CONSCIOUSNESS STATES HE WORKED ALL DAY, TOOK 3 IBUPROFEN THIS AM, AND 3 IBUPROFEN AROUND 1530. HIS ONLY COMPLAINT IS THAT HE CANNOT BREATHE OUT OF RIGHT SIDE OF NOSE. HE HAS VERY SUPERFICIAL SCRATCHES TO RIGHT SIDE OF NOSE. NO SWELLING OR BRUISING TO THE AREA OR TO HIS FACE NO VISION CHANGES OR EYE INJURY. NO MOUTH INJURY NO PRIOR NASAL PROBLEMS OR SURGERIES LAST TETANUS VACCINE IS UNKNOWN PCP: THERESA-SLAVA, DR. DUARTE Allergies and Home Medications Allergies Coded Allergies: Sulfa (Sulfonamide Antibiotics) (Verified Allergy, Unknown, 02/19/15) Patient Home Medication List Cyclobenzaprine HCl (Cyclobenzaprine HCl) 10 Mg Tablet, 10 MG PO TID Prescribed by: ABRAHAM KINCAID on 09/11/211554 Gabapentin (Neurontin) 300 Mg Capsule, 300 MG PO TID Prescribed by: TEN ESCAMILLA on 09/14/212205 Hydrocodone/Acetaminophen (Hydrocodone-Acetamin 5-325 mg) 5 Mg-325 Mg Tablet, 1 TAB PO Q4H PRN for PAIN-MODERATE (5-7) Prescribed by: MARU ALANIZ on 08/29/212032 Methylprednisolone (Methylprednisolone Dose Pack) 4 Mg Tab.ds.pk, 4 MG PO UD Prescribed by: ABRAHAM KINCAID on 09/11/211554 Review of Systems Review of Systems Constitutional: no symptoms reported Eyes: No Symptoms Reported Ears: No Symptoms Reported Nose: see HPI Mouth: no symptoms reported Skin: see HPI Neurological: No Symptoms Reported Hematologic/Lymphatic: No Symptoms Reported Past Pssprao-Hdwmuw-Zpwrzk Hx Immunizations Up To Date Tetanus Booster (TDap): More than 5yrs First/Initial COVID19 Vaccinat: x1 Second COVID19 Vaccination Madan: 05/19/2021 Third COVID19 Vaccination Date: 05/19/2021 Past Medical History Surgery/Hospitalization HX: Hernia repair and Right Knee repair twice, htn, bipolar, schizophrenia, depression/anxiety. chronic lower back pain Surgeries: Yes (RIGHT KNEE, HERNIA REPAIR, multiple trauma related surgeries, abscess RLE) Abdominal, Orthopedic Respiratory: No Cardiac: Yes Hypertension Neurological: No Reproductive Disorders: No Sexually Transmitted Disease: No Genitourinary: Yes (SWOLLEN TESTICLES) Gastrointestinal: No Musculoskeletal: Yes (Lumbar disc disease) Degenerate Disk Disease, Chronic Back Pain, Fractures Endocrine: No HEENT: No Cancer: No Psychosocial: Yes (OSAWATOMIE X 2; OVERDOSES;POLYSUBSTANCE ABUSE) Sleep Difficulties, Anxiety, Suicide Attempts, Personality Disorder, Schizophrenia, Depression Integumentary: Yes (ABSCESSES) Blood Disorders: No Family Medical History Cardiovascular disease SOCIAL HISTORY: -SMOKES 1 PPD -ETOH--HISTORY OF HEAVY/DAILY USE--AT LEAST A PINT OF HARD LIQUOR /DAY. CLAIMS NO RECENT USE -DRUGS-HX OF SNORTING AND SMOKING METH, CLAIMS NO RECENT USE. SMOKES MARIJUANA DAILY PAST SURGICAL HISTORY: -HERNIA REPAIR -MULTIPLE ORTHOPEDIC SURGERIES RELATED TO TRAUMA -RIGHT KNEE SURGERY X 2 -RIGHT LEG ABSCESS I&D Physical Exam Vital Signs Vital Signs - First Documented 11/11/22 21:11 Temp 36.6 Pulse 89 Resp 16 B/P (MAP) 158/91 (113) Pulse Ox 98 O2 Delivery Room Air Height, Weight, BMI Height: 6'4" Weight: 284lbs. oz. 128.522518mi; 39.00 BMI Method:Stated General Appearance: WD/WN, no apparent distress, other (SPEECH VERY RAPID, CONSTANT MOVEMENTS; REEKS OF CIGARETTES) Eyes: bilateral eye normal inspection, bilateral eye PERRL, bilateral eye EOMI Ears: bilateral ear TM normal Nose: No active bleeding, No discharge, No dried blood; other (NOSE--MILD TENDERNESS TO RIGHT SIDE OF NOSE AND RIGHT MAXILLA. VERY MINOR LINEAR ABRASIONS TO RIGHT SIDE OF NOSE. NO SWELLING OR BRUISING EXTERNALLY. THERE IS SLIGHT SWELLING TO RIGHT NASAL TURBINATES, BUT NO EVIDENCE OF SEPTAL HEMATOMA AND NO DEVIATION OF SEPTUM. NO BLOOD IN NARES. 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 II-XII nml as tested, no motor/sensory deficits, alert, oriented x 3 Skin: normal color, warm/dry, other ( ABOVE) Progress/Results/Core Measures Results/Orders My Orders Orders - CATHY AMAYA DO Dipht,Pertuss(Acell),Tet Adult (Boostrix (11/11/22 21:15) Ct Maxillofacial Wo (11/11/22 21:14) Medications Given in ED Current Medications Medications Dose Ordered Sig/Rubens Route Start Time Stop Time Status Last Admin Dose Admin Diphtheria/ Tetanus/Acell Pertussis 0.5 ml ONCE ONCE IM 11/11/22 21:15 11/11/22 21:16 DC 11/11/22 21:48 0.5 ML Vital Signs/I&O 11/11/22 21:11 Temp 36.6 Pulse 89 Resp 16 B/P (MAP) 158/91 (113) Pulse Ox 98 O2 Delivery Room Air Blood Pressure Mean: 113 Progress Progress Note : Progress Note DPT VACCINE GIVEN CT SCAN OF MAXILLOFACIALS ORDERED. Diagnostic Imaging Comments CT MAXILLOFACIALS--PER RADIOLOGIST REPORT AT 2155 INDICATION: Facial trauma Nasal bones are intact. Orbital morales and rims are intact. Mandible is intact. Zygomatic arches are intact. Paranasal sinuses are clear. IMPRESSION: Negative CT facial bones. Reviewed: Reviewed by Me Departure Impression Primary Impression: Contusion of nose, initial encounter Additional Impressions: Abrasion of nose without infection Dsgnxsbwdj-qphewsnxg-ewhczzk (DPT) vaccination administered at current visit Disposition: 01 HOME, SELF-CARE Condition: Stable Departure-Patient Inst. Decision time for Depature: 21:55 Referrals: SONAL DUARTE MD (PCP/Family) Primary Care Physician Patient Instructions: Abrasions ED, Diphtheria and Tetanus Toxoids, and Acellular Pertussis Vaccine, Minor Contusion ED Add. Discharge Instructions: ICE TO SORE AREA AT 20 MINUTE INTERVALS TYLENOL AND MOTRIN NEEDED FOR PAIN YOU MAY USE OVER THE COUNTER FLONASE 2 SQUIRTS EACH NOSTRIL TWICE A DAY FOR NASAL CONGESTION FOLLOW UP WITH [facility] NEEDED. All discharge instructions reviewed with patient and/or family. Voiced understanding. CATHY AMAYA 5, 2023 21:20
--- NOTE | 2022-11-11 21:54 | Diagnostic Imaging Report ---
PROCEDURE: CT maxillofacial without contrast. TECHNIQUE: Multiple contiguous axial images were obtained through the facial bones without the use of intravenous contrast. Auto Exposure Controls were utilized during the CT exam to meet ALARA standards for radiation dose reduction. INDICATION: Facial trauma Nasal bones are intact. Orbital morales and rims are intact. Mandible is intact. Zygomatic arches are intact. Paranasal sinuses are clear. IMPRESSION: Negative CT facial bones. Dictated by: Dictated on workstation # [id number]
== END 2022-11-11 21:59 | disposition home or self-care (01) ==
LOC: EDUNIT# 21:01 → ER 21:04
DX: S00.33XA Contusion of nose, initial encounter (principal); F17.210 Nicotine dependence, cigarettes, uncomplicated; Z23 Encounter for immunization; W22.8XXA Striking against or struck by other objects, initial encounter
CPT/HCPCS: 70486; 90715

== ENCOUNTER 2023-01-01 11:43 | Emergency (ER) | payer SELFPAY ==
[~2023-01-01] VITALS: Ht 195.5 cm; Wt 106.5 kg
--- NOTE | 2023-01-01 12:20 | ED General ---
General Chief Complaint: COVID19 Suspect/Confirmed Stated Complaint: COVID POSSIBLE Nursing Triage Note: PT AMB TO RM 7 WITH CC OF ABD PAIN, LOSS OF SMELL, FONTANEZ, DIARRHEA, AND COUGH THAT STARTED AT 0430 THIS MORNING. Source of Information: Patient Exam Limitations: No Limitations (ESTEBAN JOHNSON APRN) History of Present Illness Date Seen by Provider: Jan 01, 2023 Time Seen by Provider: 12:02 Initial Comments 37-year-old male presents to the ER with concerns that he has COVID. States that he woke up this morning with an upset stomach at 4:30 AM and states that his sense of smell has been on and off. He reports mild headache mild cough. States that he has shortness of air this morning, denies any currently. Reports nausea, denies vomiting. Reports 2 episodes of loose stools. Past medical history includes hypertension, patient refuses to take his medication for high blood pressure. Blood pressure found to be elevated today. Patient educated on the importance of controlling his blood pressure. (ESTEBAN JOHNSON APRN) Allergies and Home Medications Allergies Coded Allergies: Sulfa (Sulfonamide Antibiotics) (Verified Allergy, Unknown, 02/19/15) Patient Home Medication List Home Medication List Reviewed: Yes (ESTEBAN JOHNSON APRN) Cyclobenzaprine HCl (Cyclobenzaprine HCl) 10 Mg Tablet, 10 MG PO TID Prescribed by: ABRAHAM KINCAID on 09/11/211554 Gabapentin (Neurontin) 300 Mg Capsule, 300 MG PO TID Prescribed by: TEN ESCAMILLA on 09/14/212205 Hydrocodone/Acetaminophen (Hydrocodone-Acetamin 5-325 mg) 5 Mg-325 Mg Tablet, 1 TAB PO Q4H PRN for PAIN-MODERATE (5-7) Prescribed by: MARU ALANIZ on 08/29/212032 Methylprednisolone (Methylprednisolone Dose Pack) 4 Mg Tab.ds.pk, 4 MG PO UD Prescribed by: ABRAHAM KINCAID on 09/11/21 155 Review of Systems Review of Systems Constitutional: see HPI (ESTEBAN JOHNSON APRN) Past Oyinnlv-Qsgssv-Xsriud Hx Patient Social History Tobacco Use?: Yes Tobacco type used: Cigarettes Substance use?: Yes Substance type: Marijuana Alcohol Use?: Yes Alcohol Frequency: Once in a while (ESTEBAN JOHNSON APRN) Immunizations Up To Date Tetanus Booster (TDap): More than 5yrs First/Initial COVID19 Vaccinat: x1 Second COVID19 Vaccination Madan: x1 Third COVID19 Vaccination Date: x1 (ESTEBAN JOHNSON APRN) Past Medical History Surgery/Hospitalization HX: Hernia repair and Right Knee repair twice, htn, bipolar, schizophrenia, depression/anxiety. chronic lower back pain Surgeries: Yes (RIGHT KNEE, HERNIA REPAIR, multiple trauma related surgeries, abscess RLE) Abdominal, Orthopedic Respiratory: No Cardiac: Yes Hypertension Neurological: No Reproductive Disorders: No Sexually Transmitted Disease: No Genitourinary: Yes (SWOLLEN TESTICLES) Gastrointestinal: No Musculoskeletal: Yes (Lumbar disc disease) Degenerate Disk Disease, Chronic Back Pain, Fractures Endocrine: No HEENT: No Cancer: No Psychosocial: Yes (OSAWATOMIE X 2; OVERDOSES;POLYSUBSTANCE ABUSE) Sleep Difficulties, Anxiety, Suicide Attempts, Personality Disorder, Schizophrenia, Depression Integumentary: Yes (ABSCESSES) Blood Disorders: No (ESTEBAN JOHNSON APRN) Family Medical History Cardiovascular disease SOCIAL HISTORY: -SMOKES 1 PPD -ETOH--HISTORY OF HEAVY/DAILY USE--AT LEAST A PINT OF HARD LIQUOR /DAY. CLAIMS NO RECENT USE -DRUGS-HX OF SNORTING AND SMOKING METH, CLAIMS NO RECENT USE. SMOKES MARIJUANA DAILY PAST SURGICAL HISTORY: -HERNIA REPAIR -MULTIPLE ORTHOPEDIC SURGERIES RELATED TO TRAUMA -RIGHT KNEE SURGERY X 2 -RIGHT LEG ABSCESS I&D (ESTEBAN JOHNSON APRN) Physical Exam Vital Signs Vital Signs - First Documented 01/01/23 12:08 Pulse 75 B/P (MAP) 176/113 (134) Pulse Ox 98 O2 Delivery Room Air (CATHY AMAYA DO) Vital Signs Capillary Refill : (ESTEBAN JOHNSON APRN) Height, Weight, BMI Height: 6'4" Weight: 284lbs. oz. 128.835968rg; 27.00 BMI Method:Stated General Appearance: No Apparent Distress, WD/WN Neck: Normal Inspection, Supple Respiratory: Lungs Clear, Normal Breath Sounds, No Accessory Muscle Use, No Respiratory Distress Cardiovascular: Regular Rate, Rhythm Extremity: Normal Inspection, Normal Range of Motion Neurologic/Psychiatric: Alert, Normal Mood/Affect Skin: Normal Color, Warm/Dry (ESTEBAN JOHNSON APRN) Progress/Results/Core Measures Suspected Sepsis SIRS Temperature: Pulse: 75 Respiratory Rate: Blood Pressure 176 /113 Mean: 134 (ESTEBAN JOHNSON APRN) Results/Orders Lab Results Laboratory Tests Test 01/01/23 12:13 Range/Units Influenza Type A (RT-PCR) Not Detected Not Detecte Influenza Type B (RT-PCR) Not Detected Not Detecte SARS-CoV-2 RNA (RT-PCR) Not Detected Not Detecte (CATHY AMAYA DO) Vital Signs/I&O 01/01/23 01/01/23 12:08 13:00 Pulse 75 69 B/P (MAP) 176/113 (134) 135/95 Pulse Ox 98 99 O2 Delivery Room Air Room Air (CATHY AMAYA DO) Vital Signs/I&O Capillary Refill : (ESTEBAN JOHNSON APRN) Blood Pressure Mean: 134 Progress Note : Progress Note Patient seen and evaluated, resting comfortably in bed, no acute distress. Will test for COVID and flu. 1254 COVID and flu negative. Discussed with patient. Instructed that since symptoms started today, the test may not show positive yet. Patient instructed to retest in the next couple days if symptoms continue. Patient instructed to follow-up with primary care provider regarding hypertension. Discharge instructions and return precautions provided. (ESTEBAN JOHNSON APRN) Departure Impression Primary Impression: Influenza-like symptoms Disposition: 01 HOME, SELF-CARE Condition: Stable Departure-Patient Inst. Decision time for Depature: 12:54 (ESTEBAN JOHNSON APRN) Referrals: [facility] (PCP/Family) Primary Care Physician Patient Instructions: Flu Add. Discharge Instructions: Your COVID and flu test were negative. It may be too early to detect, if you are still having symptoms in the next couple of days you may need to be retested. Follow-up with primary care provider regarding your hypertension. It is very important that you control your high blood pressure. Return for any new, concerning, or worsening symptoms. All discharge instructions reviewed with patient and/or family. Voiced understanding. Work/School Note: Work Release Form Date Seen in the Emergency Department: Jan 01, 2023 Return to Work: Jan 04, 2023 Restrictions: No Restrictions ATTENDING PHYSICIAN NOTE: I WAS PHYSICALLY PRESENT ER PHYSICIAN, BUT I WAS NOT INVOLVED IN ANY DECISION MAKING OR ANY CARE OF THIS PATIENT, AND I AM NOT COLLABORATING PHYSICIAN. (CATHY AMAYA DO) ESTEBAN JOHNSON APRN Jan 01, 2023 12:20 CATHY AMAYA DO Jan 01, 2023 17:40
[2023-01-01 13:00] VITALS: BP 135/95
== END 2023-01-01 13:02 | disposition home or self-care (01) ==
LOC: EDUNIT# 11:43 → ER 11:45
DX: J11.1 Influenza due to unidentified influenza virus with other respiratory manifestations (principal); F17.210 Nicotine dependence, cigarettes, uncomplicated; Z20.822 Contact with and (suspected) exposure to COVID-19
CPT/HCPCS: 87636; 99283